=== PATIENT | male | born 1955 | race Caucasian/White ===

== ENCOUNTER → 2017-04-01 | Outpatient (CLI) | payer MEDICARE, MEDICAID ==
[~2017-04-01] MED LIST: /QUET25TA; BACT400T; LACT10SO8; LEVOTHYROXINE; OMEGA ACID ETHYL; PREG50CA; PRIL20CA; SERO200T; TYLE500T53; VICO5TAB; ZOCO10TA
--- NOTE | 2017-04-01 10:55 | REP ---
RENAL ULTRASOUND: HISTORY: Carcinoma. COMPARISON: 02/15/2014. The patient is status post left nephrectomy. The right kidney is increased in echogenicity. The right kidney measures 5.6 cm in transverse x 6.5 cm in AP x 15.3 cm in cephalocaudal dimensions. There is marked cortical thinning. There are multiple angiomyolipomas, the largest measuring 2.5 x 2.6 x 2.4 cm. There is no hydronephrosis. The urinary bladder is markedly distended. Debris is present in the urinary bladder. IMPRESSION: 1. The patient is status post left nephrectomy. 2. Multiple right renal angiolipomas, the largest measuring 2.6 cm in maximum dimension. 3. The bladder is markedly distended and contains debris. Signed by Evaristo Gutierrez MD 04/01/2017 10:56 A
== END ==
LOC: M RAD 09:21
PROVIDERS: ATTEND Internal Medicine
DX: C64.9 Malignant neoplasm of unspecified kidney, except renal pelvis (principal)

== ENCOUNTER → 2017-06-14 | Outpatient (CLI) | payer MEDICARE, MEDICAID | LOC: M WUC 14:15 | DX: J11.1 Influenza due to unidentified influenza virus with other respiratory manifestations (principal) | CPT/HCPCS: 71046 ==

== ENCOUNTER 2017-06-26 06:10 | Inpatient (IN) | payer MEDICARE, MEDICAID ==
[2017-06-26] MEDS: NS 500 ML IV (06:45)
[2017-06-26 07:05] LABS: BASO # 0.1 10^3/uL (0.0-0.2); BASO % 0.3 % (0.0-1.0); HEMATOCRIT 42.9 % (42.0-52.0); HEMOGLOBIN 14.2 g/dl (14.0-18.0); IMMATURE GRANULOCYTE % 0.7 % (0-3.0); LYMPH % 4.3 % (24.0-44.0); MEAN CORPUSCULAR HEMOGLOBIN 30.6 pg (27.0-33.0); MEAN CORPUSCULAR HGB CONC 33.1 g/dl (32.0-36.5); MEAN CORPUSCULAR VOLUME 92.5 fl (80.0-96.0); MONO # 1.1 10^3/uL (0.0-0.8); MONO % 4.7 % (0.0-5.0); PLATELET COUNT, AUTOMATED 372 10^3/uL (150-450); RED BLOOD COUNT 4.64 10^6/uL (4.30-6.10); RED CELL DISTRIBUTION WIDTH 15.2 % (11.5-14.5); WHITE BLOOD COUNT 23.3 10^3/uL (4.0-10.0)
[2017-06-26 07:23] LABS: AMMONIA 25 uMOL/L (<32)
[2017-06-26 07:29] LABS: ALBUMIN 3.1 GM/DL (3.2-5.2); ALBUMIN/GLOBULIN RATIO 0.84 (1.00-1.93); ALKALINE PHOSPHATASE 54 U/L (45-117); ALT/SGPT 58 U/L (12-78); ANION GAP 11 MEQ/L (8-16); AST/SGOT 67 U/L (7-37); BILIRUBIN,DIRECT 0.3 MG/DL (0.0-0.2); BILIRUBIN,TOTAL 0.7 MG/DL (0.2-1.0); BLOOD UREA NITROGEN 38 MG/DL (7-18); CALCIUM LEVEL 10.3 MG/DL (8.5-10.1); CARBON DIOXIDE LEVEL 24 MEQ/L (21-32); CHLORIDE LEVEL 102 MEQ/L (98-107); CPK CREATINE PHOSPHOKINASE 61 U/L (39-308); CREATININE FOR GFR 2.94 MG/DL (0.70-1.30); GLOMERULAR FILTRATION RATE 23.5 (>56); GLUCOSE, FASTING 124 MG/DL (70-100); SODIUM LEVEL 137 MEQ/L (136-145); TOTAL PROTEIN 6.8 GM/DL (6.4-8.2); TROPONIN I 0.03 NG/ML (< 0.10)
[2017-06-26 07:35] LABS: POTASSIUM SERUM 5.4 MEQ/L (3.5-5.1)
[2017-06-26 07:36] LABS: CK-MB VALUE MASS 1.7 NG/ML (0.0-3.6); MB/CK RELATIVE INDEX 2.78 (< OR =4)
[2017-06-26 07:37] LABS: LACTIC ACID SEPSIS PROTOCOL 4.3 MMOL/L (0.4-2.0)
[2017-06-26] MEDS: NS 1,000 ML IV ×4 (08:23→23:27)
[2017-06-26 10:39] LABS: BASO % 0.2 % (0.0-1.0); HEMATOCRIT 39.3 % (42.0-52.0); HEMOGLOBIN 13.3 g/dl (14.0-18.0); IMMATURE GRANULOCYTE % 0.8 % (0-3.0); LYMPH # 1.1 10^3/uL (1.5-4.5); LYMPH % 5.6 % (24.0-44.0); MEAN CORPUSCULAR HEMOGLOBIN 31.3 pg (27.0-33.0); MEAN CORPUSCULAR HGB CONC 33.8 g/dl (32.0-36.5); MEAN CORPUSCULAR VOLUME 92.5 fl (80.0-96.0); MONO # 1.5 10^3/uL (0.0-0.8); MONO % 7.2 % (0.0-5.0); NEUTROPHILS # 17.7 10^3/uL (1.8-7.7); NEUTROPHILS % 86.2 % (36.0-66.0); PLATELET COUNT, AUTOMATED 319 10^3/uL (150-450); RED BLOOD COUNT 4.25 10^6/uL (4.30-6.10); RED CELL DISTRIBUTION WIDTH 15.2 % (11.5-14.5); WHITE BLOOD COUNT 20.5 10^3/uL (4.0-10.0)
[2017-06-26 12:36] LABS: MAGNESIUM LEVEL 4.4 MG/DL (1.8-2.4); PHOSPHORUS LEVEL 7.4 MG/DL (2.5-4.9)
[2017-06-26] MEDS ORDERED: LACTULOSE 20 GM/30 ML SYRUP UD PO (14:00)
[2017-06-26] MEDS: LEVOTHYROXINE 88MCG TABLET (0.088 MG) PO (15:45)
[2017-06-26] MEDS: PREGABALIN 50 MG CAP (LYRICA) PO ×2 (16:11→22:24)
[2017-06-26] MEDS: OMEPRAZOLE 20 MG CAP PO (16:12)
[2017-06-26 18:49] LABS: ANION GAP 8 MEQ/L (8-16); AST/SGOT 37 U/L (7-37); BLOOD UREA NITROGEN 35 MG/DL (7-18); CALCIUM LEVEL 8.7 MG/DL (8.5-10.1); CARBON DIOXIDE LEVEL 22 MEQ/L (21-32); CHLORIDE LEVEL 111 MEQ/L (98-107); CREATININE FOR GFR 2.12 MG/DL (0.70-1.30); GLOMERULAR FILTRATION RATE 34.2 (>56); GLUCOSE, FASTING 116 MG/DL (70-100); POTASSIUM SERUM 4.5 MEQ/L (3.5-5.1); SODIUM LEVEL 141 MEQ/L (136-145)
[2017-06-26 18:50] LABS: ALBUMIN 2.4 GM/DL (3.2-5.2); ALBUMIN/GLOBULIN RATIO 0.73 (1.00-1.93); ALKALINE PHOSPHATASE 52 U/L (45-117); ALT/SGPT 40 U/L (12-78); BILIRUBIN,TOTAL 0.5 MG/DL (0.2-1.0); CK-MB VALUE MASS 1.4 NG/ML (0.0-3.6); CPK CREATINE PHOSPHOKINASE 54 U/L (39-308); MAGNESIUM LEVEL 2.8 MG/DL (1.8-2.4); MB/CK RELATIVE INDEX 2.59 (< OR =4); TOTAL PROTEIN 5.7 GM/DL (6.4-8.2); TROPONIN I < 0.02 NG/ML (< 0.10)
[2017-06-26 19:07] LABS: LACTIC ACID SEPSIS PROTOCOL 2.6 MMOL/L (0.4-2.0)
[2017-06-26] MEDS: NIACIN SR (NIASPAN) 500 MG TAB PO (22:24)
[2017-06-26] MEDS: QUEtiapine FUMARATE 200 MG TAB PO (22:24)
[2017-06-26] MEDS: ASPIRIN 81 MG ENTERIC TAB PO (22:24)
[2017-06-26] MEDS: SIMVASTATIN 10 MG TAB PO (22:24)
[2017-06-26] MEDS: QUEtiapine FUMARATE 50 MG TAB PO (22:24)
[2017-06-27 02:04] LABS: CPK CREATINE PHOSPHOKINASE 44 U/L (39-308); TROPONIN I < 0.02 NG/ML (< 0.10)
[2017-06-27 02:07] LABS: CK-MB VALUE MASS 1.1 NG/ML (0.0-3.6)
[2017-06-27] MEDS: LEVOTHYROXINE 88MCG TABLET (0.088 MG) PO (05:48)
[2017-06-27 06:54] LABS: HEMATOCRIT 33.1 % (42.0-52.0); MEAN CORPUSCULAR HEMOGLOBIN 31.1 pg (27.0-33.0); MEAN CORPUSCULAR HGB CONC 34.1 g/dl (32.0-36.5); MEAN CORPUSCULAR VOLUME 91.2 fl (80.0-96.0); PLATELET COUNT, AUTOMATED 264 10^3/uL (150-450); RED BLOOD COUNT 3.63 10^6/uL (4.30-6.10); RED CELL DISTRIBUTION WIDTH 15.4 % (11.5-14.5); WHITE BLOOD COUNT 9.7 10^3/uL (4.0-10.0)
[2017-06-27 07:09] LABS: POSITIVE MORPH POS FLAG
[2017-06-27 07:10] LABS: ADD MANUAL DIFFER YES; DIFF SLIDE NUMBER 88; HEMOGLOBIN 11.3 g/dl (14.0-18.0)
[2017-06-27 07:28] LABS: ALBUMIN 2.2 GM/DL (3.2-5.2); ALBUMIN/GLOBULIN RATIO 0.79 (1.00-1.93); ALKALINE PHOSPHATASE 42 U/L (45-117); ALT/SGPT 30 U/L (12-78); ANION GAP 7 MEQ/L (8-16); AST/SGOT 23 U/L (7-37); BILIRUBIN,TOTAL 0.5 MG/DL (0.2-1.0); BLOOD UREA NITROGEN 30 MG/DL (7-18); CARBON DIOXIDE LEVEL 21 MEQ/L (21-32); CHLORIDE LEVEL 115 MEQ/L (98-107); CREATININE FOR GFR 1.57 MG/DL (0.70-1.30); FREE THYROXINE INDEX 1.3 % (1.4-3.8); GLOMERULAR FILTRATION RATE 48.4 (>56); GLUCOSE, FASTING 106 MG/DL (70-100); MAGNESIUM LEVEL 2.4 MG/DL (1.8-2.4); POTASSIUM SERUM 4.3 MEQ/L (3.5-5.1); SODIUM LEVEL 143 MEQ/L (136-145); T UPTAKE 36 % (33-40); THYROXINE (T4) 3.6 UG/DL (4.5-12.0)
[2017-06-27 07:29] LABS: BANDS 6 % (< 11); BASOPHILS 1 % (0-4); LYMPHOCYTES 12 % (16-52); MONOCYTES 4 % (0-8); NEUTROPHILS 77 % (35-75)
[2017-06-27 07:30] LABS: PLATELET ESTIMATE NORMAL (NORMAL)
[2017-06-27] MEDS: PREGABALIN 50 MG CAP (LYRICA) PO ×3 (08:26→20:22)
[2017-06-27] MEDS: OMEPRAZOLE 20 MG CAP PO (08:26)
[2017-06-27] MEDS: QUEtiapine FUMARATE 100 MG TAB PO (08:26)
[2017-06-27] MEDS: NS 1,000 ML IV ×2 (09:40→20:22)
[2017-06-27 10:25] LABS: CPK CREATINE PHOSPHOKINASE 31 U/L (39-308); MB/CK RELATIVE INDEX 3.22 (< OR =4); TROPONIN I < 0.02 NG/ML (< 0.10)
[2017-06-27] MEDS: QUEtiapine FUMARATE 200 MG TAB PO (20:22)
[2017-06-27] MEDS: QUEtiapine FUMARATE 50 MG TAB PO (20:22)
[2017-06-27] MEDS: ASPIRIN 81 MG ENTERIC TAB PO (20:22)
[2017-06-27] MEDS: SIMVASTATIN 10 MG TAB PO (20:22)
[2017-06-27] MEDS: NIACIN SR (NIASPAN) 500 MG TAB PO (20:22)
[2017-06-27 21:36] LABS: AMORPHOUS SEDIMENT SMALL (NEGATIVE); APPEARANCE, URINE CLOUDY (CLEAR); BACTERIA, URINE AUTO 2+ (NEGATIVE); BILIRUBIN, URINE AUTO NEGATIVE (NEGATIVE); BLOOD, URINE BLOOD 1+ (NEGATIVE); COLOR, URINE YELLOW (YELLOW); GLUCOSE, URINE (UA) AUTO NEGATIVE (NEGATIVE); KETONE, URINE AUTO NEGATIVE (NEGATIVE); LEUKOCYTE ESTERASE, URINE AUTO 1+ (NEGATIVE); MUCUS, URINE SMALL (NEGATIVE); NITRITE, URINE AUTO NEGATIVE (NEGATIVE); PROTEIN, URINE AUTO NEGATIVE (NEGATIVE); RBC, URINE AUTO 5 /HPF (0-3); SPECIFIC GRAVITY URINE AUTO 1.015 (1.002-1.035); SQUAMOUS EPITHELIAL CELL UR AU 23 /HPF (0-6); WBC, URINE AUTO 28 /HPF (0-3)
[2017-06-28] MEDS: NS 1,000 ML IV (05:27)
[2017-06-28] MEDS: LEVOTHYROXINE 88MCG TABLET (0.088 MG) PO (06:24)
[2017-06-28 07:37] LABS: HEMATOCRIT 27.9 % (42.0-52.0); HEMOGLOBIN 9.5 g/dl (14.0-18.0); MEAN CORPUSCULAR HEMOGLOBIN 30.8 pg (27.0-33.0); MEAN CORPUSCULAR HGB CONC 34.1 g/dl (32.0-36.5); MEAN CORPUSCULAR VOLUME 90.6 fl (80.0-96.0); PLATELET COUNT, AUTOMATED 238 10^3/uL (150-450); RED BLOOD COUNT 3.08 10^6/uL (4.30-6.10); RED CELL DISTRIBUTION WIDTH 15.4 % (11.5-14.5)
[2017-06-28 07:42] LABS: ADD MANUAL DIFFER YES; DIFF SLIDE NUMBER 49; POSITIVE MORPH POS FLAG
[2017-06-28 07:59] LABS: ALBUMIN 1.9 GM/DL (3.2-5.2); ALBUMIN/GLOBULIN RATIO 0.58 (1.00-1.93); ALKALINE PHOSPHATASE 41 U/L (45-117); ALT/SGPT 24 U/L (12-78); ANION GAP 6 MEQ/L (8-16); AST/SGOT 23 U/L (7-37); BILIRUBIN,TOTAL 0.3 MG/DL (0.2-1.0); BLOOD UREA NITROGEN 15 MG/DL (7-18); CALCIUM LEVEL 7.9 MG/DL (8.5-10.1); CARBON DIOXIDE LEVEL 23 MEQ/L (21-32); CHLORIDE LEVEL 114 MEQ/L (98-107); GLOMERULAR FILTRATION RATE > 60.0 (>56); GLUCOSE, FASTING 96 MG/DL (70-100); SODIUM LEVEL 143 MEQ/L (136-145); TOTAL PROTEIN 5.2 GM/DL (6.4-8.2)
[2017-06-28 08:13] LABS: ATYPICAL LYMPH 3 % (0-5); BANDS 4 % (< 11); EOSINOPHILS 3 % (0-5); LYMPHOCYTES 14 % (16-52); METAMYELOCYTES 1 % (0-0); MONOCYTES 7 % (0-8); NEUTROPHILS 68 % (35-75); PLATELET ESTIMATE NORMAL (NORMAL)
[2017-06-28 08:14] LABS: ANISOCYTOSIS 1+; POLYCHROMASIA 1+
[2017-06-28] MEDS: QUEtiapine FUMARATE 100 MG TAB PO (08:34)
[2017-06-28] MEDS: OMEPRAZOLE 20 MG CAP PO (08:35)
[2017-06-28] MEDS: PREGABALIN 50 MG CAP (LYRICA) PO ×3 (08:35→20:45)
[2017-06-28] MEDS: TAMSULOSIN 0.4 MG CAP PO (08:35)
[2017-06-28] MEDS: LACTULOSE 20 GM/30 ML SYRUP UD PO ×3 (09:00→20:47)
[2017-06-28 16:01] LABS: HEMATOCRIT 29.6 % (42.0-52.0)
[2017-06-28] MEDS: NIACIN SR (NIASPAN) 500 MG TAB PO (20:44)
[2017-06-28] MEDS: QUEtiapine FUMARATE 200 MG TAB PO (20:44)
[2017-06-28] MEDS: QUEtiapine FUMARATE 50 MG TAB PO (20:44)
[2017-06-28] MEDS: ASPIRIN 81 MG ENTERIC TAB PO (20:44)
[2017-06-28] MEDS: SIMVASTATIN 10 MG TAB PO (20:44)
[2017-06-29 00:20] LABS: HEMOGLOBIN 9.8 g/dl (14.0-18.0)
[2017-06-29] MEDS: LEVOTHYROXINE 88MCG TABLET (0.088 MG) PO (06:13)
[2017-06-29 07:11] LABS: BASO # 0.1 10^3/uL (0.0-0.2); BASO % 0.7 % (0.0-1.0); EOS # 0.7 10^3/uL (0.0-0.50); EOS % 8.6 % (0.0-3.0); HEMATOCRIT 29.3 % (42.0-52.0); HEMOGLOBIN 9.9 g/dl (14.0-18.0); IMMATURE GRANULOCYTE % 0.8 % (0-3.0); LYMPH # 1.5 10^3/uL (1.5-4.5); LYMPH % 18.2 % (24.0-44.0); MEAN CORPUSCULAR HEMOGLOBIN 30.6 pg (27.0-33.0); MEAN CORPUSCULAR HGB CONC 33.8 g/dl (32.0-36.5); MEAN CORPUSCULAR VOLUME 90.4 fl (80.0-96.0); MONO # 0.5 10^3/uL (0.0-0.8); MONO % 5.7 % (0.0-5.0); NEUTROPHILS # 5.5 10^3/uL (1.8-7.7); PLATELET COUNT, AUTOMATED 265 10^3/uL (150-450); RED BLOOD COUNT 3.24 10^6/uL (4.30-6.10); RED CELL DISTRIBUTION WIDTH 15.3 % (11.5-14.5); WHITE BLOOD COUNT 8.4 10^3/uL (4.0-10.0)
[2017-06-29 07:36] LABS: ALBUMIN 2.1 GM/DL (3.2-5.2); ALBUMIN/GLOBULIN RATIO 0.57 (1.00-1.93); ALKALINE PHOSPHATASE 53 U/L (45-117); ALT/SGPT 38 U/L (12-78); ANION GAP 7 MEQ/L (8-16); AST/SGOT 39 U/L (7-37); BILIRUBIN,TOTAL 0.2 MG/DL (0.2-1.0); BLOOD UREA NITROGEN 12 MG/DL (7-18); CALCIUM LEVEL 8.5 MG/DL (8.5-10.1); CARBON DIOXIDE LEVEL 25 MEQ/L (21-32); CHLORIDE LEVEL 114 MEQ/L (98-107); CREATININE FOR GFR 1.09 MG/DL (0.70-1.30); GLOMERULAR FILTRATION RATE > 60.0 (>56); GLUCOSE, FASTING 101 MG/DL (70-100); MAGNESIUM LEVEL 1.9 MG/DL (1.8-2.4); POTASSIUM SERUM 3.8 MEQ/L (3.5-5.1); SODIUM LEVEL 146 MEQ/L (136-145); TOTAL PROTEIN 5.8 GM/DL (6.4-8.2)
[2017-06-29] MEDS: LACTULOSE 20 GM/30 ML SYRUP UD PO ×3 (09:09→21:21)
[2017-06-29] MEDS: TAMSULOSIN 0.4 MG CAP PO (09:10)
[2017-06-29] MEDS: QUEtiapine FUMARATE 100 MG TAB PO (09:10)
[2017-06-29] MEDS: PREGABALIN 50 MG CAP (LYRICA) PO ×3 (09:10→21:21)
[2017-06-29] MEDS: OMEPRAZOLE 20 MG CAP PO (09:11)
[2017-06-29] MEDS: CEPHALEXIN 500 MG CAP PO ×2 (13:41→21:21)
[2017-06-29] MEDS: FINASTERIDE 5 MG TAB PO (13:41)
[2017-06-29] MEDS: QUEtiapine FUMARATE 200 MG TAB PO (21:21)
[2017-06-29] MEDS: SIMVASTATIN 10 MG TAB PO (21:21)
[2017-06-29] MEDS: QUEtiapine FUMARATE 50 MG TAB PO (21:21)
[2017-06-29] MEDS: ASPIRIN 81 MG ENTERIC TAB PO (21:21)
[2017-06-29] MEDS: NIACIN SR (NIASPAN) 500 MG TAB PO (21:21)
[2017-06-30] MEDS: LEVOTHYROXINE 88MCG TABLET (0.088 MG) PO (06:00)
[2017-06-30 06:59] LABS: HEMATOCRIT 29.6 % (42.0-52.0); MEAN CORPUSCULAR HGB CONC 33.8 g/dl (32.0-36.5); MEAN CORPUSCULAR VOLUME 91.6 fl (80.0-96.0); PLATELET COUNT, AUTOMATED 273 10^3/uL (150-450); RED BLOOD COUNT 3.23 10^6/uL (4.30-6.10); RED CELL DISTRIBUTION WIDTH 14.9 % (11.5-14.5); WHITE BLOOD COUNT 8.8 10^3/uL (4.0-10.0)
[2017-06-30 07:06] LABS: ADD MANUAL DIFFER YES; DIFF SLIDE NUMBER 24; POSITIVE MORPH POS FLAG
[2017-06-30 07:22] LABS: ALBUMIN 2.2 GM/DL (3.2-5.2); ALBUMIN/GLOBULIN RATIO 0.58 (1.00-1.93); ALKALINE PHOSPHATASE 57 U/L (45-117); ALT/SGPT 44 U/L (12-78); ANION GAP 10 MEQ/L (8-16); AST/SGOT 36 U/L (7-37); BILIRUBIN,TOTAL 0.3 MG/DL (0.2-1.0); BLOOD UREA NITROGEN 15 MG/DL (7-18); CALCIUM LEVEL 8.5 MG/DL (8.5-10.1); CARBON DIOXIDE LEVEL 25 MEQ/L (21-32); CHLORIDE LEVEL 117 MEQ/L (98-107); CREATININE FOR GFR 1.17 MG/DL (0.70-1.30); GLOMERULAR FILTRATION RATE > 60.0 (>56); GLUCOSE, FASTING 93 MG/DL (70-100); MAGNESIUM LEVEL 1.8 MG/DL (1.8-2.4); POTASSIUM SERUM 3.9 MEQ/L (3.5-5.1); SODIUM LEVEL 152 MEQ/L (136-145)
[2017-06-30 07:50] LABS: ATYPICAL LYMPH 5 % (0-5); BANDS 1 % (< 11); BASOPHILS 1 % (0-4); EOSINOPHILS 6 % (0-5); LYMPHOCYTES 24 % (16-52); MONOCYTES 9 % (0-8); NEUTROPHILS 54 % (35-75)
[2017-06-30 07:51] LABS: PLATELET ESTIMATE NORMAL (NORMAL)
[2017-06-30] MEDS: LACTULOSE 20 GM/30 ML SYRUP UD PO ×3 (08:41→20:36)
[2017-06-30] MEDS: TAMSULOSIN 0.4 MG CAP PO (08:41)
[2017-06-30] MEDS: CEPHALEXIN 500 MG CAP PO ×2 (08:42→20:36)
[2017-06-30] MEDS: PREGABALIN 50 MG CAP (LYRICA) PO ×3 (08:42→20:36)
[2017-06-30] MEDS: OMEPRAZOLE 20 MG CAP PO (08:42)
[2017-06-30] MEDS: FINASTERIDE 5 MG TAB PO (08:42)
[2017-06-30] MEDS: D5W 1,000 ML IV (08:44)
[2017-06-30 12:42] LABS: ANION GAP 5 MEQ/L (8-16); BLOOD UREA NITROGEN 15 MG/DL (7-18); CALCIUM LEVEL 8.3 MG/DL (8.5-10.1); CARBON DIOXIDE LEVEL 27 MEQ/L (21-32); CHLORIDE LEVEL 113 MEQ/L (98-107); CREATININE FOR GFR 1.21 MG/DL (0.70-1.30); GLOMERULAR FILTRATION RATE > 60.0 (>56); GLUCOSE, FASTING 109 MG/DL (70-100); MAGNESIUM LEVEL 1.9 MG/DL (1.8-2.4); PHOSPHORUS LEVEL 2.1 MG/DL (2.5-4.9); POTASSIUM SERUM 3.5 MEQ/L (3.5-5.1); SODIUM LEVEL 145 MEQ/L (136-145)
[2017-06-30] MEDS: QUEtiapine FUMARATE 100 MG TAB PO (13:07)
[2017-06-30] MEDS: SIMVASTATIN 10 MG TAB PO (20:36)
[2017-06-30] MEDS: ASPIRIN 81 MG ENTERIC TAB PO (20:36)
[2017-06-30] MEDS: QUEtiapine FUMARATE 200 MG TAB PO (20:36)
[2017-06-30] MEDS: QUEtiapine FUMARATE 50 MG TAB PO (20:36)
[2017-06-30] MEDS: NIACIN SR (NIASPAN) 500 MG TAB PO (20:36)
[2017-07-01] MEDS: LEVOTHYROXINE 88MCG TABLET (0.088 MG) PO (05:56)
[2017-07-01 06:57] LABS: HEMATOCRIT 31.8 % (42.0-52.0); HEMOGLOBIN 10.8 g/dl (14.0-18.0); MEAN CORPUSCULAR HEMOGLOBIN 30.9 pg (27.0-33.0); MEAN CORPUSCULAR VOLUME 90.9 fl (80.0-96.0); PLATELET COUNT, AUTOMATED 302 10^3/uL (150-450); RED CELL DISTRIBUTION WIDTH 14.6 % (11.5-14.5); WHITE BLOOD COUNT 7.4 10^3/uL (4.0-10.0)
[2017-07-01 06:58] LABS: POSITIVE MORPH POS FLAG
[2017-07-01 06:59] LABS: ADD MANUAL DIFFER YES; DIFF SLIDE NUMBER 24
[2017-07-01 07:15] LABS: ALBUMIN 2.2 GM/DL (3.2-5.2); ALBUMIN/GLOBULIN RATIO 0.58 (1.00-1.93); ALKALINE PHOSPHATASE 52 U/L (45-117); ALT/SGPT 47 U/L (12-78); ANION GAP 8 MEQ/L (8-16); AST/SGOT 36 U/L (7-37); BILIRUBIN,TOTAL 0.3 MG/DL (0.2-1.0); BLOOD UREA NITROGEN 15 MG/DL (7-18); CALCIUM LEVEL 8.5 MG/DL (8.5-10.1); CARBON DIOXIDE LEVEL 25 MEQ/L (21-32); CHLORIDE LEVEL 109 MEQ/L (98-107); GLOMERULAR FILTRATION RATE > 60.0 (>56); GLUCOSE, FASTING 109 MG/DL (70-100); MAGNESIUM LEVEL 1.8 MG/DL (1.8-2.4); POTASSIUM SERUM 3.9 MEQ/L (3.5-5.1); SODIUM LEVEL 142 MEQ/L (136-145)
[2017-07-01 07:31] LABS: ATYPICAL LYMPH 3 % (0-5); BANDS 2 % (< 11); EOSINOPHILS 11 % (0-5); LYMPHOCYTES 27 % (16-52); MONOCYTES 7 % (0-8); NEUTROPHILS 50 % (35-75)
[2017-07-01 07:32] LABS: PLATELET ESTIMATE NORMAL (NORMAL)
[2017-07-01] MEDS: TAMSULOSIN 0.4 MG CAP PO (08:52)
[2017-07-01] MEDS: LACTULOSE 20 GM/30 ML SYRUP UD PO (08:52)
[2017-07-01] MEDS: PREGABALIN 50 MG CAP (LYRICA) PO (08:53)
[2017-07-01] MEDS: OMEPRAZOLE 20 MG CAP PO (08:53)
[2017-07-01] MEDS: FINASTERIDE 5 MG TAB PO (08:53)
[2017-07-01] MEDS: CEPHALEXIN 500 MG CAP PO (08:53)
[2017-07-01] MEDS: QUEtiapine FUMARATE 100 MG TAB PO (08:53)
== END 2017-07-01 14:20 | disposition home or self-care (01) | DRG 690 ==
LOC: M MS4PR 06-27 17:15 → M ED 06:10 → M ED INP 13:20
DX: N39.0 Urinary tract infection, site not specified (principal); F72 Severe intellectual disabilities; N17.9 Acute kidney failure, unspecified; Q85.1 Tuberous sclerosis; E87.2 Acidosis; G40.909 Epilepsy, unspecified, not intractable, without status epilepticus; E78.5 Hyperlipidemia, unspecified; K21.9 Gastro-esophageal reflux disease without esophagitis; E03.9 Hypothyroidism, unspecified; N18.3 Chronic kidney disease, stage 3 (moderate); K59.00 Constipation, unspecified; D64.9 Anemia, unspecified; R33.9 Retention of urine, unspecified; A08.4 Viral intestinal infection, unspecified; E83.41 Hypermagnesemia; E87.5 Hyperkalemia; Z79.82 Long term (current) use of aspirin; Z88.5 Allergy status to narcotic agent; Z88.6 Allergy status to analgesic agent; Z88.8 Allergy status to other drugs, medicaments and biological substances; Z88.1 Allergy status to other antibiotic agents; Z85.528 Personal history of other malignant neoplasm of kidney; Z90.5 Acquired absence of kidney

== ENCOUNTER → 2017-07-19 | Outpatient (REF) | payer MEDICARE, MEDICAID ==
[2017-07-19 20:06] LABS: APPEARANCE, URINE CLOUDY (CLEAR); BACTERIA, URINE AUTO 3+ (NEGATIVE); BILIRUBIN, URINE AUTO NEGATIVE (NEGATIVE); BLOOD, URINE BLOOD 3+ (NEGATIVE); COLOR, URINE YELLOW (YELLOW); GLUCOSE, URINE (UA) AUTO NEGATIVE (NEGATIVE); KETONE, URINE AUTO NEGATIVE (NEGATIVE); LEUKOCYTE ESTERASE, URINE AUTO 3+ (NEGATIVE); MUCUS, URINE MODERATE (NEGATIVE); NITRITE, URINE AUTO NEGATIVE (NEGATIVE); PROTEIN, URINE AUTO 1+ mg/dL (NEGATIVE); RBC, URINE AUTO 45 /HPF (0-3); SPECIFIC GRAVITY URINE AUTO 1.011 (1.002-1.035); SQUAMOUS EPITHELIAL CELL UR AU 4 /HPF (0-6); WBC, URINE AUTO TNTC /HPF (0-3)
[2017-07-19 20:29] LABS: INFLUENZA A AMPLIFICATION NEGATIVE (NEGATIVE); INFLUENZA B AMPLIFICATION NEGATIVE (NEGATIVE)
== END ==
LOC: M LAB REF 18:52
DX: J11.1 Influenza due to unidentified influenza virus with other respiratory manifestations (principal); N39.0 Urinary tract infection, site not specified
CPT/HCPCS: 81001

== ENCOUNTER 2017-08-14 20:23 | Emergency (ER) | payer MEDICARE, MEDICAID ==
[2017-08-14 22:37] LABS: KETONE, URINE AUTO RFX NEGATIVE (NEGATIVE); RBC, URINE AUTO RFX 6 /HPF (0-3); SPECIFIC GRAVITY UR AUTO RFX 1.004 (1.002-1.035); SQUAM EPITHELIAL CELL UR AURFX 1 /HPF (0-6); TRANSITIONAL EPITHELIAL AU RFX <1 /HPF
[2017-08-14 22:38] LABS: LEUKOCYTE ESTERASE UR AUTO RFX 3+ (NEGATIVE); NITRITE, URINE AUTO RFX POSITIVE (NEGATIVE); WBC, URINE AUTO RFX 112 /HPF (0-3)
[2017-08-14] MEDS: NITROFURANTOIN (MACROBID) 100 MG CAP PO ×4 (23:10)
== END 2017-08-14 23:24 | disposition home or self-care (01) ==
LOC: M ED 20:23
DX: N39.0 Urinary tract infection, site not specified (principal); R33.9 Retention of urine, unspecified; F72 Severe intellectual disabilities; R56.9 Unspecified convulsions; E03.9 Hypothyroidism, unspecified; N40.1 Benign prostatic hyperplasia with lower urinary tract symptoms; F41.9 Anxiety disorder, unspecified; Z90.5 Acquired absence of kidney; Z88.6 Allergy status to analgesic agent; Z88.5 Allergy status to narcotic agent; Z88.1 Allergy status to other antibiotic agents; Z79.899 Other long term (current) drug therapy; Z79.82 Long term (current) use of aspirin
CPT/HCPCS: 81001

== ENCOUNTER 2017-10-15 08:01 | Inpatient (IN) | payer MEDICARE, MEDICAID ==
[2017-10-15] MEDS: NS 1,000 ML IV ×5 (09:26→21:56)
[2017-10-15 09:41] LABS: HEMATOCRIT 42.6 % (42.0-52.0); HEMOGLOBIN 13.9 g/dl (13.5-17.5); MEAN CORPUSCULAR HEMOGLOBIN 29.1 pg (27.0-33.0); MEAN CORPUSCULAR HGB CONC 32.6 g/dl (32.0-36.5); MEAN CORPUSCULAR VOLUME 89.3 fl (80.0-96.0); PLATELET COUNT, AUTOMATED 289 10^3/uL (150-450); RED BLOOD COUNT 4.77 10^6/uL (4.30-6.10); RED CELL DISTRIBUTION WIDTH 16.2 % (11.5-14.5); WHITE BLOOD COUNT 15.5 10^3/uL (4.0-10.0)
[2017-10-15 09:45] LABS: ADD MANUAL DIFFER YES; DIFF SLIDE NUMBER 183; POSITIVE MORPH POS FLAG
[2017-10-15 10:10] LABS: BANDS 17 % (< 11); LYMPHOCYTES 10 % (16-52); MONOCYTES 2 % (0-8); NEUTROPHILS 71 % (35-75)
[2017-10-15 10:11] LABS: ALKALINE PHOSPHATASE 49 U/L (45-117); ANION GAP 14 MEQ/L (8-16); ANISOCYTOSIS 1+; AST/SGOT 36 U/L (7-37); BILIRUBIN,DIRECT 0.2 MG/DL (0.0-0.2); BILIRUBIN,TOTAL 0.6 MG/DL (0.2-1.0); BLOOD UREA NITROGEN 46 MG/DL (7-18); CALCIUM LEVEL 9.6 MG/DL (8.5-10.1); CARBON DIOXIDE LEVEL 23 MEQ/L (21-32); CHLORIDE LEVEL 104 MEQ/L (98-107); CPK CREATINE PHOSPHOKINASE 51 U/L (39-308); CREATININE FOR GFR 2.99 MG/DL (0.70-1.30); GLUCOSE, FASTING 130 MG/DL (70-100); PLATELET ESTIMATE NORMAL (NORMAL); POTASSIUM SERUM 4.4 MEQ/L (3.5-5.1); SODIUM LEVEL 141 MEQ/L (136-145); TOTAL PROTEIN 7.8 GM/DL (6.4-8.2); TROPONIN I < 0.02 NG/ML (< 0.10)
[2017-10-15 10:18] LABS: LACTIC ACID SEPSIS PROTOCOL 4.5 MMOL/L (0.4-2.0)
[2017-10-15 10:23] LABS: ALBUMIN 3.4 GM/DL (3.2-5.2); ALBUMIN/GLOBULIN RATIO 0.77 (1.00-1.93); ALT/SGPT 37 U/L (12-78); CK-MB VALUE MASS < 1.0 NG/ML (<3.6); MB/CK RELATIVE INDEX 1.96 (< OR =4)
[2017-10-15] MEDS: cefTRIAXone SOD 1 GM in D5W MINI-BAG PLUS 50 ML IV (10:55)
[2017-10-15 11:12] LABS: CALCIUM OXALATE CRYSTALS RFX SMALL; KETONE, URINE AUTO RFX TRACE mg/dL (NEGATIVE); MUCUS, URINE RFX SMALL (NEGATIVE); NITRITE, URINE AUTO RFX NEGATIVE (NEGATIVE); RBC, URINE AUTO RFX 60 /HPF (0-3); SPECIFIC GRAVITY UR AUTO RFX 1.023 (1.002-1.035); SQUAM EPITHELIAL CELL UR AURFX 31 /HPF (0-6)
[2017-10-15 11:13] LABS: LEUKOCYTE ESTERASE UR AUTO RFX 2+ (NEGATIVE); WBC, URINE AUTO RFX 128 /HPF (0-3)
[2017-10-15] MEDS ORDERED: PILL CRUSHER/CUTTER 1 EACH XX (13:15)
[2017-10-15] MEDS ORDERED: metroNIDAZOLE 500 MG in APPROPRIATE DILUENT 1 EA IV (15:00)
[2017-10-15] MEDS: OMEPRAZOLE 20 MG CAP PO (15:00)
[2017-10-15] MEDS: PREGABALIN 50 MG CAP (LYRICA) PO ×2 (15:00→21:56)
[2017-10-15] MEDS: QUEtiapine FUMARATE 100 MG TAB PO ×2 (15:00→21:56)
[2017-10-15] MEDS: LEVOTHYROXINE 88MCG TABLET (0.088 MG) PO (15:01)
[2017-10-15] MEDS: ACETAMINOPHEN 500 MG TAB PO (15:13)
[2017-10-15 15:27] LABS: LACTIC ACID SEPSIS PROTOCOL 2.6 MMOL/L (0.4-2.0)
[2017-10-15] MEDS ORDERED: QUEtiapine FUMARATE 50 MG TAB PO (21:00)
[2017-10-15] MEDS: SIMVASTATIN 10 MG TAB PO (21:56)
[2017-10-15] MEDS: HEPARIN SOD (PORCINE) 5000 UNITS/ML VIAL SC (22:06)
[2017-10-15] MEDS: metroNIDAZOLE 500 MG in APPROPRIATE DILUENT 1 EA IV (23:06)
[2017-10-16] MEDS: LEVOTHYROXINE 88MCG TABLET (0.088 MG) PO (06:17)
[2017-10-16] MEDS: metroNIDAZOLE 500 MG in APPROPRIATE DILUENT 1 EA IV (06:17)
[2017-10-16 07:00] LABS: HEMATOCRIT 30.5 % (42.0-52.0); MEAN CORPUSCULAR HEMOGLOBIN 29.6 pg (27.0-33.0); MEAN CORPUSCULAR HGB CONC 34.1 g/dl (32.0-36.5); MEAN CORPUSCULAR VOLUME 86.9 fl (80.0-96.0); PLATELET COUNT, AUTOMATED 198 10^3/uL (150-450); RED BLOOD COUNT 3.51 10^6/uL (4.30-6.10); RED CELL DISTRIBUTION WIDTH 16.8 % (11.5-14.5); WHITE BLOOD COUNT 7.8 10^3/uL (4.0-10.0)
[2017-10-16 07:16] LABS: ANION GAP 8 MEQ/L (8-16); BLOOD UREA NITROGEN 29 MG/DL (7-18); CARBON DIOXIDE LEVEL 20 MEQ/L (21-32); CHLORIDE LEVEL 119 MEQ/L (98-107); GLOMERULAR FILTRATION RATE 55.2 (>56); GLUCOSE, FASTING 117 MG/DL (70-100); POTASSIUM SERUM 3.7 MEQ/L (3.5-5.1); SODIUM LEVEL 147 MEQ/L (136-145)
[2017-10-16 07:20] LABS: LACTIC ACID SEPSIS PROTOCOL 1.2 MMOL/L (0.4-2.0)
[2017-10-16 07:29] LABS: ADD MANUAL DIFFER YES; DIFF SLIDE NUMBER 66; HEMOGLOBIN 10.4 g/dl (13.5-17.5); POSITIVE MORPH POS FLAG
[2017-10-16 08:08] LABS: BANDS 14 % (< 11); EOSINOPHILS 7 % (0-5); LYMPHOCYTES 23 % (16-52); MONOCYTES 6 % (0-8); NEUTROPHILS 50 % (35-75)
[2017-10-16 08:09] LABS: ANISOCYTOSIS 1+; OVALOCYTES 1+; PLATELET ESTIMATE NORMAL (NORMAL)
[2017-10-16] MEDS: PREGABALIN 50 MG CAP (LYRICA) PO ×3 (10:27→21:56)
[2017-10-16] MEDS: OMEPRAZOLE 20 MG CAP PO (10:27)
[2017-10-16] MEDS: HEPARIN SOD (PORCINE) 5000 UNITS/ML VIAL SC ×2 (10:27→21:57)
[2017-10-16] MEDS: cefTRIAXone SOD 1 GM in D5W MINI-BAG PLUS 50 ML IV (10:27)
[2017-10-16] MEDS: QUEtiapine FUMARATE 100 MG TAB PO ×2 (10:28→21:56)
[2017-10-16] MEDS: NS 1,000 ML IV ×3 (10:28→22:24)
[2017-10-16] MEDS ORDERED: cefTRIAXone SOD 1 GM in D5W MINI-BAG PLUS 50 ML IV (11:00)
[2017-10-16] MEDS: VANCOMYCIN ORAL SOL 250MG/5ML ORAL SYRINGE PO ×3 (14:04→23:38)
[2017-10-16] MEDS: SIMVASTATIN 10 MG TAB PO (21:56)
[2017-10-17] MEDS: LEVOTHYROXINE 88MCG TABLET (0.088 MG) PO (05:45)
[2017-10-17] MEDS: VANCOMYCIN ORAL SOL 250MG/5ML ORAL SYRINGE PO ×4 (05:45→23:39)
[2017-10-17 06:40] LABS: HEMATOCRIT 29.4 % (42.0-52.0); HEMOGLOBIN 9.9 g/dl (13.5-17.5); MEAN CORPUSCULAR HEMOGLOBIN 29.8 pg (27.0-33.0); MEAN CORPUSCULAR HGB CONC 33.7 g/dl (32.0-36.5); MEAN CORPUSCULAR VOLUME 88.6 fl (80.0-96.0); PLATELET COUNT, AUTOMATED 198 10^3/uL (150-450); RED BLOOD COUNT 3.32 10^6/uL (4.30-6.10); RED CELL DISTRIBUTION WIDTH 16.7 % (11.5-14.5); WHITE BLOOD COUNT 8.6 10^3/uL (4.0-10.0)
[2017-10-17 06:54] LABS: POSITIVE MORPH POS FLAG
[2017-10-17 06:55] LABS: ADD MANUAL DIFFER YES; DIFF SLIDE NUMBER 53
[2017-10-17 07:01] LABS: ANION GAP 6 MEQ/L (8-16); BLOOD UREA NITROGEN 16 MG/DL (7-18); CALCIUM LEVEL 8.2 MG/DL (8.5-10.1); CARBON DIOXIDE LEVEL 24 MEQ/L (21-32); CHLORIDE LEVEL 119 MEQ/L (98-107); CREATININE FOR GFR 1.24 MG/DL (0.70-1.30); GLOMERULAR FILTRATION RATE > 60.0 (>56); GLUCOSE, FASTING 89 MG/DL (70-100); POTASSIUM SERUM 3.8 MEQ/L (3.5-5.1); SODIUM LEVEL 149 MEQ/L (136-145)
[2017-10-17 07:18] LABS: BANDS 8 % (< 11); EOSINOPHILS 12 % (0-5); LYMPHOCYTES 24 % (16-52); MONOCYTES 3 % (0-8); NEUTROPHILS 53 % (35-75); PLATELET ESTIMATE NORMAL (NORMAL)
[2017-10-17] MEDS: QUEtiapine FUMARATE 100 MG TAB PO ×2 (08:42→20:40)
[2017-10-17] MEDS: OMEPRAZOLE 20 MG CAP PO (08:42)
[2017-10-17] MEDS: PREGABALIN 50 MG CAP (LYRICA) PO ×3 (08:42→20:40)
[2017-10-17] MEDS: HEPARIN SOD (PORCINE) 5000 UNITS/ML VIAL SC ×2 (08:43→20:40)
[2017-10-17] MEDS: cefTRIAXone SOD 1 GM in D5W MINI-BAG PLUS 50 ML IV (10:25)
[2017-10-17] MEDS: D5W/0.45% SODIUM CHLORIDE 1,000 ML IV ×2 (11:31→23:39)
[2017-10-17] MEDS: SIMVASTATIN 10 MG TAB PO (20:40)
[2017-10-18] MEDS: LEVOTHYROXINE 88MCG TABLET (0.088 MG) PO (05:55)
[2017-10-18] MEDS: VANCOMYCIN ORAL SOL 250MG/5ML ORAL SYRINGE PO ×3 (05:55→16:56)
[2017-10-18 06:16] LABS: BASO # 0.1 10^3/uL (0.0-0.2); BASO % 0.7 % (0.0-1.0); HEMATOCRIT 30.9 % (42.0-52.0); HEMOGLOBIN 10.5 g/dl (13.5-17.5); IMMATURE GRANULOCYTE % 1.2 % (0-3.0); LYMPH # 2.3 10^3/uL (1.5-4.5); LYMPH % 30.3 % (24.0-44.0); MEAN CORPUSCULAR HEMOGLOBIN 29.3 pg (27.0-33.0); MEAN CORPUSCULAR VOLUME 86.3 fl (80.0-96.0); MONO # 0.5 10^3/uL (0.0-0.8); MONO % 6.8 % (0.0-5.0); NEUTROPHILS # 3.6 10^3/uL (1.8-7.7); PLATELET COUNT, AUTOMATED 234 10^3/uL (150-450); RED BLOOD COUNT 3.58 10^6/uL (4.30-6.10); RED CELL DISTRIBUTION WIDTH 16.3 % (11.5-14.5); WHITE BLOOD COUNT 7.5 10^3/uL (4.0-10.0)
[2017-10-18 06:30] LABS: ANION GAP 6 MEQ/L (8-16); BLOOD UREA NITROGEN 13 MG/DL (7-18); CALCIUM LEVEL 8.5 MG/DL (8.5-10.1); CARBON DIOXIDE LEVEL 26 MEQ/L (21-32); CHLORIDE LEVEL 114 MEQ/L (98-107); CREATININE FOR GFR 0.99 MG/DL (0.70-1.30); GLOMERULAR FILTRATION RATE > 60.0 (>56); GLUCOSE, FASTING 92 MG/DL (70-100); POTASSIUM SERUM 3.6 MEQ/L (3.5-5.1); SODIUM LEVEL 146 MEQ/L (136-145)
[2017-10-18] MEDS: OMEPRAZOLE 20 MG CAP PO (09:38)
[2017-10-18] MEDS: cefTRIAXone SOD 1 GM in D5W MINI-BAG PLUS 50 ML IV (09:38)
[2017-10-18] MEDS: HEPARIN SOD (PORCINE) 5000 UNITS/ML VIAL SC ×2 (09:38→19:59)
[2017-10-18] MEDS: PREGABALIN 50 MG CAP (LYRICA) PO ×3 (09:38→19:59)
[2017-10-18] MEDS: QUEtiapine FUMARATE 100 MG TAB PO ×2 (09:38→19:59)
[2017-10-18] MEDS: D5W/0.45% SODIUM CHLORIDE 1,000 ML IV (12:01)
[2017-10-18] MEDS: SIMVASTATIN 10 MG TAB PO (19:59)
[2017-10-19] MEDS: VANCOMYCIN ORAL SOL 250MG/5ML ORAL SYRINGE PO ×4 (00:19→18:06)
[2017-10-19] MEDS: D5W/0.45% SODIUM CHLORIDE 1,000 ML IV ×2 (00:19→14:11)
[2017-10-19] MEDS: LEVOTHYROXINE 88MCG TABLET (0.088 MG) PO (05:38)
[2017-10-19 06:29] LABS: HEMATOCRIT 31.2 % (42.0-52.0); HEMOGLOBIN 10.6 g/dl (13.5-17.5); MEAN CORPUSCULAR HEMOGLOBIN 29.4 pg (27.0-33.0); MEAN CORPUSCULAR VOLUME 86.4 fl (80.0-96.0); PLATELET COUNT, AUTOMATED 249 10^3/uL (150-450); RED BLOOD COUNT 3.61 10^6/uL (4.30-6.10); RED CELL DISTRIBUTION WIDTH 15.9 % (11.5-14.5)
[2017-10-19 06:42] LABS: ANION GAP 8 MEQ/L (8-16); BLOOD UREA NITROGEN 12 MG/DL (7-18); CALCIUM LEVEL 8.4 MG/DL (8.5-10.1); CARBON DIOXIDE LEVEL 26 MEQ/L (21-32); CHLORIDE LEVEL 111 MEQ/L (98-107); CREATININE FOR GFR 1.02 MG/DL (0.70-1.30); GLOMERULAR FILTRATION RATE > 60.0 (>56); GLUCOSE, FASTING 102 MG/DL (70-100); POTASSIUM SERUM 3.5 MEQ/L (3.5-5.1); SODIUM LEVEL 145 MEQ/L (136-145)
[2017-10-19 07:04] LABS: ADD MANUAL DIFFER YES; DIFF SLIDE NUMBER 19; POS COUNT POS FLAG; POSITIVE MORPH POS FLAG
[2017-10-19 07:22] LABS: ANISOCYTOSIS 1+; BASOPHILS 2 % (0-4); EOSINOPHILS 14 % (0-5); LYMPHOCYTES 34 % (16-52); METAMYELOCYTES 2 % (0-0); MONOCYTES 7 % (0-8); MYELOCYTES 3 % (0-0); NEUTROPHILS 38 % (35-75); PLATELET ESTIMATE NORMAL (NORMAL)
[2017-10-19] MEDS: PREGABALIN 50 MG CAP (LYRICA) PO ×3 (09:59→21:04)
[2017-10-19] MEDS: OMEPRAZOLE 20 MG CAP PO (09:59)
[2017-10-19] MEDS: CEFEPIME HCL 1 GM in D5W MINI-BAG PLUS 50 ML IV ×2 (09:59→20:14)
[2017-10-19] MEDS: QUEtiapine FUMARATE 100 MG TAB PO ×2 (09:59→20:15)
[2017-10-19] MEDS: HEPARIN SOD (PORCINE) 5000 UNITS/ML VIAL SC ×2 (09:59→20:17)
[2017-10-19] MEDS: SIMVASTATIN 10 MG TAB PO (21:04)
[2017-10-20] MEDS: VANCOMYCIN ORAL SOL 250MG/5ML ORAL SYRINGE PO ×4 (00:21→18:28)
[2017-10-20] MEDS: D5W/0.45% SODIUM CHLORIDE 1,000 ML IV (00:21)
[2017-10-20 06:03] LABS: HEMATOCRIT 30.9 % (42.0-52.0); HEMOGLOBIN 10.6 g/dl (13.5-17.5); MEAN CORPUSCULAR HEMOGLOBIN 29.6 pg (27.0-33.0); MEAN CORPUSCULAR HGB CONC 34.3 g/dl (32.0-36.5); MEAN CORPUSCULAR VOLUME 86.3 fl (80.0-96.0); PLATELET COUNT, AUTOMATED 256 10^3/uL (150-450); RED BLOOD COUNT 3.58 10^6/uL (4.30-6.10); RED CELL DISTRIBUTION WIDTH 16.1 % (11.5-14.5); WHITE BLOOD COUNT 9.4 10^3/uL (4.0-10.0)
[2017-10-20] MEDS: LEVOTHYROXINE 88MCG TABLET (0.088 MG) PO (06:09)
[2017-10-20 06:11] LABS: POS COUNT POS FLAG; POSITIVE MORPH POS FLAG
[2017-10-20 06:12] LABS: ADD MANUAL DIFFER YES; DIFF SLIDE NUMBER 12
[2017-10-20 06:16] LABS: ANION GAP 8 MEQ/L (8-16); BLOOD UREA NITROGEN 13 MG/DL (7-18); CALCIUM LEVEL 8.6 MG/DL (8.5-10.1); CARBON DIOXIDE LEVEL 26 MEQ/L (21-32); CHLORIDE LEVEL 111 MEQ/L (98-107); CREATININE FOR GFR 1.01 MG/DL (0.70-1.30); GLOMERULAR FILTRATION RATE > 60.0 (>56); GLUCOSE, FASTING 99 MG/DL (70-100); POTASSIUM SERUM 3.5 MEQ/L (3.5-5.1); SODIUM LEVEL 145 MEQ/L (136-145)
[2017-10-20 06:40] LABS: ANISOCYTOSIS 1+; ATYPICAL LYMPH 3 % (0-5); BASOPHILS 1 % (0-4); EOSINOPHILS 11 % (0-5); LYMPHOCYTES 37 % (16-52); METAMYELOCYTES 4 % (0-0); MONOCYTES 7 % (0-8); MYELOCYTES 2 % (0-0); NEUTROPHILS 35 % (35-75); PLATELET ESTIMATE NORMAL (NORMAL)
[2017-10-20] MEDS: CEFEPIME HCL 1 GM in D5W MINI-BAG PLUS 50 ML IV ×2 (09:16→20:19)
[2017-10-20] MEDS: OMEPRAZOLE 20 MG CAP PO (09:16)
[2017-10-20] MEDS: PREGABALIN 50 MG CAP (LYRICA) PO ×3 (09:16→20:20)
[2017-10-20] MEDS: HEPARIN SOD (PORCINE) 5000 UNITS/ML VIAL SC ×2 (09:17→20:19)
[2017-10-20] MEDS: QUEtiapine FUMARATE 100 MG TAB PO ×2 (09:17→20:19)
[2017-10-20] MEDS: SIMVASTATIN 10 MG TAB PO (20:19)
[2017-10-21] MEDS: VANCOMYCIN ORAL SOL 250MG/5ML ORAL SYRINGE PO ×2 (00:26→06:25)
[2017-10-21] MEDS: LEVOTHYROXINE 88MCG TABLET (0.088 MG) PO (06:25)
[2017-10-21 06:35] LABS: HEMATOCRIT 32.3 % (42.0-52.0); HEMOGLOBIN 10.8 g/dl (13.5-17.5); MEAN CORPUSCULAR HEMOGLOBIN 29.1 pg (27.0-33.0); MEAN CORPUSCULAR HGB CONC 33.4 g/dl (32.0-36.5); MEAN CORPUSCULAR VOLUME 87.1 fl (80.0-96.0); PLATELET COUNT, AUTOMATED 272 10^3/uL (150-450); RED BLOOD COUNT 3.71 10^6/uL (4.30-6.10); RED CELL DISTRIBUTION WIDTH 16.5 % (11.5-14.5); WHITE BLOOD COUNT 8.6 10^3/uL (4.0-10.0)
[2017-10-21 06:39] LABS: ANION GAP 8 MEQ/L (8-16); BLOOD UREA NITROGEN 14 MG/DL (7-18); CALCIUM LEVEL 8.5 MG/DL (8.5-10.1); CARBON DIOXIDE LEVEL 26 MEQ/L (21-32); CHLORIDE LEVEL 109 MEQ/L (98-107); CREATININE FOR GFR 1.08 MG/DL (0.70-1.30); GLOMERULAR FILTRATION RATE > 60.0 (>56); GLUCOSE, FASTING 97 MG/DL (70-100); POTASSIUM SERUM 3.8 MEQ/L (3.5-5.1); SODIUM LEVEL 143 MEQ/L (136-145)
[2017-10-21 06:43] LABS: ADD MANUAL DIFFER YES; DIFF SLIDE NUMBER 12; POS COUNT POS FLAG; POSITIVE MORPH POS FLAG
[2017-10-21 07:31] LABS: BANDS 4 % (< 11); BASOPHILS 1 % (0-4); EOSINOPHILS 13 % (0-5); LYMPHOCYTES 36 % (16-52); METAMYELOCYTES 5 % (0-0); MONOCYTES 7 % (0-8); MYELOCYTES 2 % (0-0); NEUTROPHILS 32 % (35-75); OVALOCYTES 1+
[2017-10-21 07:32] LABS: PLATELET ESTIMATE NORMAL (NORMAL)
[2017-10-21] MEDS: HEPARIN SOD (PORCINE) 5000 UNITS/ML VIAL SC (09:00)
[2017-10-21] MEDS: CEFEPIME HCL 1 GM in D5W MINI-BAG PLUS 50 ML IV (10:54)
[2017-10-21] MEDS: OMEPRAZOLE 20 MG CAP PO (10:54)
[2017-10-21] MEDS: PREGABALIN 50 MG CAP (LYRICA) PO (10:55)
[2017-10-21] MEDS: QUEtiapine FUMARATE 100 MG TAB PO (10:55)
== END 2017-10-21 11:00 | disposition home or self-care (01) | DRG 698 ==
LOC: M ED 08:01 → M ED INP 12:48 → M MSPAV 16:18
DX: T83.511A Infection and inflammatory reaction due to indwelling urethral catheter, initial encounter (principal); A41.9 Sepsis, unspecified organism; F73 Profound intellectual disabilities; A04.72 Enterocolitis due to Clostridium difficile, not specified as recurrent; N17.9 Acute kidney failure, unspecified; E87.2 Acidosis; E87.0 Hyperosmolality and hypernatremia; Q85.1 Tuberous sclerosis; N39.0 Urinary tract infection, site not specified; B96.5 Pseudomonas (aeruginosa) (mallei) (pseudomallei) as the cause of diseases classified elsewhere; G40.909 Epilepsy, unspecified, not intractable, without status epilepticus; E78.5 Hyperlipidemia, unspecified; M48.02 Spinal stenosis, cervical region; R33.9 Retention of urine, unspecified; N31.9 Neuromuscular dysfunction of bladder, unspecified; D17.71 Benign lipomatous neoplasm of kidney; K21.9 Gastro-esophageal reflux disease without esophagitis; E03.9 Hypothyroidism, unspecified; N18.3 Chronic kidney disease, stage 3 (moderate); K59.09 Other constipation; N40.1 Benign prostatic hyperplasia with lower urinary tract symptoms; Z85.528 Personal history of other malignant neoplasm of kidney; Z90.5 Acquired absence of kidney; Z96.0 Presence of urogenital implants; Z88.6 Allergy status to analgesic agent; Z88.5 Allergy status to narcotic agent; Z88.1 Allergy status to other antibiotic agents; Z88.8 Allergy status to other drugs, medicaments and biological substances; Z79.82 Long term (current) use of aspirin; Z79.899 Other long term (current) drug therapy; Y82.9 Unspecified medical devices associated with adverse incidents

== ENCOUNTER 2017-10-30 06:16 | Emergency (ER) | payer MEDICARE, MEDICAID ==
[2017-10-30 08:16] LABS: AMORPHOUS SEDIMENT SMALL (NEGATIVE); APPEARANCE, URINE CLEAR (CLEAR); BACTERIA, URINE AUTO NEGATIVE (NEGATIVE); BILIRUBIN, URINE AUTO NEGATIVE (NEGATIVE); BLOOD, URINE BLOOD NEGATIVE (NEGATIVE); COLOR, URINE STRAW (YELLOW); GLUCOSE, URINE (UA) AUTO NEGATIVE (NEGATIVE); KETONE, URINE AUTO NEGATIVE (NEGATIVE); LEUKOCYTE ESTERASE, URINE AUTO NEGATIVE (NEGATIVE); NITRITE, URINE AUTO NEGATIVE (NEGATIVE); PROTEIN, URINE AUTO NEGATIVE (NEGATIVE); RBC, URINE AUTO 2 /HPF (0-3); SPECIFIC GRAVITY URINE AUTO 1.006 (1.002-1.035); SQUAMOUS EPITHELIAL CELL UR AU 0 /HPF (0-6); UROBILINOGEN, URINE AUTO 0.2 mg/dL (0.0-2.0); WBC, URINE AUTO 1 /HPF (0-3)
== END 2017-10-30 08:22 | disposition home or self-care (01) ==
LOC: M ED 06:16
DX: R33.0 Drug induced retention of urine (principal); T83.028A Displacement of other urinary catheter, initial encounter; E78.70 Disorder of bile acid and cholesterol metabolism, unspecified; K21.9 Gastro-esophageal reflux disease without esophagitis; E07.9 Disorder of thyroid, unspecified; F78 Other intellectual disabilities
CPT/HCPCS: 81001

== ENCOUNTER → 2017-12-12 | Outpatient (REF) | payer MEDICARE, MEDICAID ==
[2017-12-12 14:53] LABS: APPEARANCE, URINE CLOUDY (CLEAR); BACTERIA, URINE AUTO 3+ (NEGATIVE); BILIRUBIN, URINE AUTO NEGATIVE (NEGATIVE); BLOOD, URINE BLOOD NEGATIVE (NEGATIVE); COLOR, URINE YELLOW (YELLOW); GLUCOSE, URINE (UA) AUTO NEGATIVE (NEGATIVE); KETONE, URINE AUTO NEGATIVE (NEGATIVE); LEUKOCYTE ESTERASE, URINE AUTO 3+ (NEGATIVE); MUCUS, URINE SMALL (NEGATIVE); NITRITE, URINE AUTO NEGATIVE (NEGATIVE); PROTEIN, URINE AUTO NEGATIVE (NEGATIVE); RBC, URINE AUTO 7 /HPF (0-3); SQUAMOUS EPITHELIAL CELL UR AU 3 /HPF (0-6); UROBILINOGEN, URINE AUTO 0.2 mg/dL (0.0-2.0); WBC, URINE AUTO TNTC /HPF (0-3)
== END ==
LOC: M SMT 11:52
DX: R82.90 Unspecified abnormal findings in urine (principal)
CPT/HCPCS: 81001

== ENCOUNTER → 2018-03-24 | Outpatient (CLI) | payer MEDICARE, MEDICAID ==
[2018-03-24 07:19] LABS: BASO # 0.1 10^3/uL (0.0-0.2); BASO % 1.3 % (0.0-1.0); EOS # 0.7 10^3/uL (0.0-0.50); HEMOGLOBIN 11.9 g/dl (13.5-17.5); IMMATURE GRANULOCYTE % 0.4 % (0-3.0); LYMPH # 1.9 10^3/uL (1.5-4.5); LYMPH % 34.7 % (24.0-44.0); MEAN CORPUSCULAR HEMOGLOBIN 31.1 pg (27.0-33.0); MEAN CORPUSCULAR HGB CONC 33.1 g/dl (32.0-36.5); MONO # 0.7 10^3/uL (0.0-0.8); MONO % 11.8 % (0.0-5.0); NEUTROPHILS # 2.2 10^3/uL (1.8-7.7); NEUTROPHILS % 38.8 % (36.0-66.0); PLATELET COUNT, AUTOMATED 268 10^3/uL (150-450); RED BLOOD COUNT 3.83 10^6/uL (4.30-6.10); RED CELL DISTRIBUTION WIDTH 14.5 % (11.5-14.5); WHITE BLOOD COUNT 5.5 10^3/uL (4.0-10.0)
[2018-03-24 07:50] LABS: ANION GAP 4 MEQ/L (8-16); BLOOD UREA NITROGEN 20 MG/DL (7-18); CALCIUM LEVEL 9.2 MG/DL (8.8-10.2); CARBON DIOXIDE LEVEL 30 MEQ/L (21-32); CHLORIDE LEVEL 108 MEQ/L (98-107); CHOLESTEROL LEVEL 101 MG/DL (<200); CHOLESTEROL RISK RATIO 3.156 (<5); CREATININE FOR GFR 1.45 MG/DL (0.70-1.30); GLOMERULAR FILTRATION RATE 52.8 (>49); GLUCOSE, FASTING 95 MG/DL (70-100); HDL CHOLESTEROL 32 MG/DL (>40); LDL CHOLESTEROL 60 MG/DL (<100); NON-HDL-C 69 MG/DL; POTASSIUM SERUM 4.1 MEQ/L (3.5-5.1); SODIUM LEVEL 142 MEQ/L (136-145); TRIGLYCERIDES LEVEL 44 MG/DL (<150)
== END ==
LOC: M LAB 06:57
DX: E03.9 Hypothyroidism, unspecified (principal)
CPT/HCPCS: 84443

== ENCOUNTER → 2018-04-05 | Outpatient (REF) | payer MEDICARE, MEDICAID ==
[2018-04-05 22:12] LABS: APPEARANCE, URINE CLEAR (CLEAR); BACTERIA, URINE AUTO NEGATIVE (NEGATIVE); BILIRUBIN, URINE AUTO NEGATIVE (NEGATIVE); BLOOD, URINE BLOOD NEGATIVE (NEGATIVE); COLOR, URINE YELLOW (YELLOW); GLUCOSE, URINE (UA) AUTO NEGATIVE (NEGATIVE); KETONE, URINE AUTO NEGATIVE (NEGATIVE); LEUKOCYTE ESTERASE, URINE AUTO NEGATIVE (NEGATIVE); NITRITE, URINE AUTO POSITIVE (NEGATIVE); PROTEIN, URINE AUTO NEGATIVE (NEGATIVE); RBC, URINE AUTO 2 /HPF (0-3); SPECIFIC GRAVITY URINE AUTO 1.006 (1.002-1.035); SQUAMOUS EPITHELIAL CELL UR AU 0 /HPF (0-6); UROBILINOGEN, URINE AUTO 0.2 mg/dL (0.0-2.0); WBC, URINE AUTO 4 /HPF (0-3)
== END ==
LOC: M LAB REF 10:04
DX: N39.0 Urinary tract infection, site not specified (principal)
CPT/HCPCS: 81001

== ENCOUNTER 2018-09-19 16:59 | Day surgery (SDC) | payer MEDICARE, MEDICAID ==
[~2018-09-19] VITALS: Ht 167.6 cm; Wt 95.5 kg
--- NOTE | 2018-09-19 17:38 | ED PDOC ---
Post-Departure Follow-Up patient not seen by ED provider. Gardenia Cee MD September 19, 2018 17:38
[2018-09-19 17:43] LABS: HEMATOCRIT 36.6 % (42.0-52.0); HEMOGLOBIN 12.3 g/dl (13.5-17.5); MEAN CORPUSCULAR HEMOGLOBIN 32.5 pg (27.0-33.0); MEAN CORPUSCULAR HGB CONC 33.6 g/dl (32.0-36.5); MEAN CORPUSCULAR VOLUME 96.8 fl (80.0-96.0); PLATELET COUNT, AUTOMATED 227 10^3/uL (150-450); RED BLOOD COUNT 3.78 10^6/uL (4.30-6.10)
[2018-09-19 17:58] LABS: INR 0.96; PROTHROMBIN TIME 12.9 SECONDS (12.1-14.4)
[2018-09-19 17:59] LABS: PARTIAL THROMBOPLASTIN TIME 26.9 SECONDS (25.4-37.6)
[2018-09-19] MEDS ORDERED: CEPH500C PO (18:04)
[2018-09-19 18:15] LABS: CALCIUM LEVEL 9.4 MG/DL (8.8-10.2); CREATININE FOR GFR 1.46 MG/DL (0.70-1.30); GLOMERULAR FILTRATION RATE 52.4 (>49); POTASSIUM SERUM 4.1 MEQ/L (3.5-5.1)
[2018-09-19] MEDS ORDERED: cefTRIAXone SOD 1 GM VIAL (J0696) As Ordered ONE (19:15)
[2018-09-19] MEDS ORDERED: PROPOFOL 200 MG/20 ML VIAL As Ordered ONE (19:31)
[2018-09-19] MEDS ORDERED: LIDOCAINE 2% INJ 100 MG/5 ML SDV (FOR ANES.) As Ordered ONE (19:31)
[2018-09-19] MEDS ORDERED: fentaNYL 100 MCG/2 ML INJECTION (J3010) As Ordered ONE (19:32)
[2018-09-19] MEDS ORDERED: MIDAZOLAM INJ 2 MG/2 ML VIAL (J2250) As Ordered ONE (19:32)
[2018-09-19] MEDS ORDERED: LIDOCAINE 2% 5ML JELLY UROJET As Ordered ONE (19:37)
[2018-09-19] MEDS ORDERED: ONDANSETRON 4MG/2ML VIAL (J2405) As Ordered ONE (19:57)
[2018-09-19] MEDS ORDERED: KETOROLAC 60 MG/2 ML VIAL (J1885) As Ordered ONE (19:57)
[2018-09-19] MEDS ORDERED: dexameTHASONE 4 MG/ML 1ML VIAL (J1100) As Ordered ONE (19:57)
[2018-09-19] MEDS ORDERED: ONDANSETRON 4MG/2ML VIAL (J2405) IV PRN (20:45)
[2018-09-19] MEDS ORDERED: fentaNYL 100 MCG/2 ML INJECTION (J3010) IV PRN (20:45)
[2018-09-19] MEDS ORDERED: LR 1,000 ML IV SCH (20:45)
--- NOTE | 2018-09-19 21:02 | ECGEPIP ---
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
[2018-09-19 22:50] VITALS: BP 131/89
--- NOTE | 2018-09-20 14:11 | RO ---
DATE OF PROCEDURE: 09/19/2018 PREOPERATIVE DIAGNOSIS: Urinary retention and retained Cesar catheter. POSTOPERATIVE DIAGNOSIS: Urinary retention and retained Cesar catheter. OPERATIVE PROCEDURE PERFORMED: Cystoscopy. Removal and replacement of Cesar catheter. SURGEON: Dr. Elan Mixon ANESTHESIA: IV sedation. ESTIMATED BLOOD LOSS: Minimal. INDICATIONS: Mr. Mehrdad Cristobal is a 62-year-old gentleman with known mental retardation who was in urinary retention. He came to the urology clinic today for Cesar catheter replacement and the Cesar catheter that was in place could not be removed. Multiple conservative maneuvers were tried unsuccessfully. The patient was then sent to radiology and no visualized balloon was seen in the bladder. The patient was brought to the operating room for further management. PROCEDURE IN DETAIL: The patient was brought in to the operating room and after administration of IV sedation he was placed in the dorsal lithotomy position and prepped and draped in the usual fashion. Cystourethroscopy was first performed using #17-Pakistani cystoscope. The anterior and posterior urethra was noted to be normal. The prostatic urethra was noted to be somewhat ragged and adherent to the catheter. The balloon was noted to be decompressed. With moderate difficulty the bladder was entered. The bladder was noted to have significant "floaties" seen and foul smelling urine. A sample was obtained and sent to microbiology for culture. The end of the Cesar catheter was noted to be completely calcified. It was dislodged from the surrounding tissue and that catheter was ultimately removed. Repeat cystoscopy with a 22-Pakistani cystoscope revealed moderate irritation and some tissue removal in the region of the prostatic urethra and bladder neck. The bladder was otherwise largely unremarkable except for Cesar catheter irritation on the posterior wall and dome. A fresh 16-Pakistani Cesar catheter was placed and the balloon was inflated with 10 mL. This was irrigated without difficulty. It was placed to gravity drainage and the patient was returned to the supine position. Anesthesia was reversed and he was transferred to a bed and taken to the postanesthesia care unit in good condition. Of note the needle and instrument count were correct at the completion of the case.
== END 2018-09-19 22:50 | disposition home or self-care (01) ==
LOC: M ED 16:59 → M SDC 18:47
PROVIDERS: ATTEND Urology
DX: T83.018A Breakdown (mechanical) of other urinary catheter, initial encounter (principal); R33.9 Retention of urine, unspecified; N40.0 Benign prostatic hyperplasia without lower urinary tract symptoms; E78.00 Pure hypercholesterolemia, unspecified; Z88.1 Allergy status to other antibiotic agents; Z88.8 Allergy status to other drugs, medicaments and biological substances; Z79.899 Other long term (current) drug therapy; K21.9 Gastro-esophageal reflux disease without esophagitis; Z79.82 Long term (current) use of aspirin; F79 Unspecified intellectual disabilities; Y82.8 Other medical devices associated with adverse incidents
CPT/HCPCS: 51703; 52000; 76857; 80048; 85027; 85610; 85730; 87088; 87186; 88300; 93005; 99284; G0463; J0696; J1100; J2250; J2405; J3010

== ENCOUNTER → 2018-09-19 | Outpatient (CLI) | payer MEDICARE, MEDICAID ==
[~2018-09-19] MED LIST changes: -/QUET25TA; +ASPI81TA26 PO; +CEPH500C PO; +FENO160T10 PO; +FINA5TAB2 PO; +FISH100049 PO; +FLOM0.4C39 PO; +LACT10SO29 PO; +LEVO750T13 PO; +LEVO88TA24 PO; +MACR100C43 PO; +NIAC500T64 PO; +NIAS500T23 PO; +OMEG100011 PO; +OMEP20CA3 PO; +PERI0.126 MT; +PERI0.126 PO; +PREG1POW XX; +PREG50CA PO; +SERO1TAB2 PO; +SERO1TAB3; +SERO200T PO; +SERO50TA PO; +SIMV10TA2 PO; +SYNT88TA2 PO; +VANC250C3 PO
--- NOTE | 2018-09-19 17:23 | REP ---
LIMITED ULTRASOUND OF THE BLADDER: Real-time sonographic evaluation of the urinary bladder performed prior to a scheduled procedure to attempt to deflate the Cesar catheter balloon. There is moderate distention of the urinary bladder. No Cesar balloon is seen within the bladder lumen. There is subtle echogenicity with shadowing in the region of the prostatic urethra raising the possibility that the Cesar catheter balloon is located in the prostatic portion of the urethra. The ultrasound guided deflation of the Cesar balloon therefore could not be performed. Electronically Signed by Milan Wetzel MD 09/23/2018 10:08 A
== END ==
LOC: M LAB 15:43
PROVIDERS: ATTEND Nurse Practitioner Family
DX: R32 Unspecified urinary incontinence (principal)

== ENCOUNTER 2019-01-01 09:53 | Emergency (ER) | payer MEDICARE, MEDICAID ==
[~2019-01-01] VITALS: Ht 167.6 cm; Wt 100.0 kg
[~2019-01-01 09:53] MED LIST changes: -OMEP20CA3 PO; +OMEP20CA4 PO
[2019-01-01] MEDS ORDERED: SERO200T PO (10:05)
[2019-01-01 12:12] LABS: BASO % 0.3 % (0.0-1.0); EOS # 0.3 10^3/uL (0.0-0.5); EOS % 2.4 % (0.0-3.0); HEMATOCRIT 39.1 % (42.0-52.0); HEMOGLOBIN 12.9 g/dl (13.5-17.5); LYMPH # 0.9 10^3/uL (1.5-5.0); MEAN CORPUSCULAR HEMOGLOBIN 32.3 pg (27.0-33.0); MONO # 0.6 10^3/uL (0.0-0.8); MONO % 4.7 % (0.0-5.0); NEUTROPHILS # 9.9 10^3/uL (1.5-8.5); NEUTROPHILS % 84.3 % (36.0-66.0); PLATELET COUNT, AUTOMATED 235 10^3/uL (150-450); RED BLOOD COUNT 3.99 10^6/uL (4.30-6.10); WHITE BLOOD COUNT 11.8 10^3/uL (4.0-10.0)
[2019-01-01 12:45] LABS: BLOOD UREA NITROGEN 21 MG/DL (7-18); CALCIUM LEVEL 9.4 MG/DL (8.8-10.2); CARBON DIOXIDE LEVEL 28 MEQ/L (21-32); CHLORIDE LEVEL 106 MEQ/L (98-107); CK-MB VALUE MASS < 1.0 NG/ML (<3.6); CPK CREATINE PHOSPHOKINASE 165 U/L (39-308); CREATININE FOR GFR 1.64 MG/DL (0.70-1.30); GLOMERULAR FILTRATION RATE 45.7 (>49); GLUCOSE, FASTING 112 MG/DL (70-100); MB/CK RELATIVE INDEX 0.61 (< OR =4); POTASSIUM SERUM 5.7 MEQ/L (3.5-5.1); SODIUM LEVEL 139 MEQ/L (136-145); TROPONIN I < 0.02 NG/ML (< 0.10)
--- NOTE | 2019-01-01 12:48 | REP ---
Clinical: Pyelonephritis. Technique: Axial noncontrast images from the lung bases to the pubic symphysis with coronal and sagittal re-formations. Comparison: 10/15/2017. Note: Examination is significantly limited due to motion artifact. Findings: Lung bases suggest mild dependent changes. Liver, spleen, pancreas, and bilateral adrenal glands are grossly normal. Cholelithiasis noted. Evidence for prior left nephrectomy. Right kidney includes multiple predominantly subcentimeter fat-containing lesions along with two larger fat-containing lesions measuring up to approximately 3.4 cm and consistent with multiple angiomyolipoma. No perinephric stranding, urinary tract calcifications, or hydroureteronephrosis noted. The enteric system is without obstruction. Mild wall thickening to multiple loops of bowel may reflect enterocolitis and should be correlated clinically. Pelvis demonstrates Cesar catheter in chronic thick-walled bladder without discrete focal lesion. The prostate gland is normal for age. No ascites. No free air. No adenopathy. Abdominal aorta without aneurysm. Musculoskeletal structures demonstrate age-related changes. Impression: 1. Somewhat limited examination due to motion artifact. 2. Cannot exclude mild acute enterocolitis. 3. Multiple angiomyolipomas to the right kidney again identified and similar to prior examination without evidence for acute renal process. Chronic wall thickening to the bladder unchanged from prior examination. 4. Cholelithiasis. 5. Further chronic stable changes as above. Electronically Signed by Eddi Pham MD 01/01/2019 12:39 P
--- NOTE | 2019-01-01 13:20 | REP ---
Clinical: Headache. Comparison: 10/15/2017. Findings: The ventricles, sulci, and cisterns are normal in position and appearance. Wetzel-white differentiation is maintained. No acute intracranial hemorrhage, mass/mass effect, pathology or trauma/injury. Calcified subependymal tubers are unchanged and chronic. No evidence for acute infarction. No extra-axial fluid collection. Calvarium is intact. Paranasal sinuses and mastoid air cells are clear. Impression: Chronic stable change. No evidence for acute intracranial pathology or trauma/injury. Electronically Signed by Eddi Pham MD 01/01/2019 01:12 P
[2019-01-01 15:15] VITALS: BP 114/74
--- NOTE | 2019-01-02 07:01 | ECGEPIP ---
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
== END 2019-01-01 15:49 | disposition home or self-care (01) ==
LOC: EDBD 09:53 → M ED 09:53
DX: I95.9 Hypotension, unspecified (principal); N18.3 Chronic kidney disease, stage 3 (moderate); K21.9 Gastro-esophageal reflux disease without esophagitis; G40.909 Epilepsy, unspecified, not intractable, without status epilepticus; F79 Unspecified intellectual disabilities; N40.0 Benign prostatic hyperplasia without lower urinary tract symptoms; K59.00 Constipation, unspecified; Z88.1 Allergy status to other antibiotic agents; Z88.5 Allergy status to narcotic agent; Z88.6 Allergy status to analgesic agent; Z88.8 Allergy status to other drugs, medicaments and biological substances

== ENCOUNTER → 2019-01-05 | Outpatient (REF) | payer MEDICARE, MEDICAID ==
[2019-01-05 17:45] LABS: BACTERIA, URINE AUTO 2+ (NEGATIVE); RBC, URINE AUTO 8 /HPF (0-3); SQUAMOUS EPITHELIAL CELL UR AU 2 /HPF (0-6); WBC, URINE AUTO 24 /HPF (0-3)
[2019-01-05 17:56] LABS: APPEARANCE, URINE HAZY (CLEAR); BILIRUBIN, URINE AUTO NEGATIVE (NEGATIVE); BLOOD, URINE BLOOD 1+ (NEGATIVE); COLOR, URINE YELLOW (YELLOW); GLUCOSE, URINE (UA) AUTO NEGATIVE (NEGATIVE); KETONE, URINE AUTO NEGATIVE (NEGATIVE); LEUKOCYTE ESTERASE, URINE AUTO 3+ (NEGATIVE); MUCUS, URINE SMALL (NEGATIVE); NITRITE, URINE AUTO NEGATIVE (NEGATIVE); PROTEIN, URINE AUTO NEGATIVE (NEGATIVE); SPECIFIC GRAVITY URINE AUTO 1.003 (1.002-1.035); UROBILINOGEN, URINE AUTO 0.2 mg/dL (0.0-2.0)
== END ==
LOC: M LAB REF 17:17
PROVIDERS: ATTEND Physician Assistant Medical
DX: N39.0 Urinary tract infection, site not specified (principal)

== ENCOUNTER 2019-02-27 21:38 | Emergency (ER) | payer MEDICARE, MEDICAID ==
[~2019-02-27] VITALS: Ht 167.6 cm; Wt 97.7 kg
[2019-02-27] MEDS ORDERED: LIDOCAINE 2% 5ML JELLY UROJET TOP ONE (22:00)
[2019-02-27 23:01] LABS: AMORPHOUS SEDIMENT SMALL (NEGATIVE); APPEARANCE, URINE CLOUDY (CLEAR); BACTERIA, URINE AUTO 2+ (NEGATIVE); BILIRUBIN, URINE AUTO NEGATIVE (NEGATIVE); BLOOD, URINE BLOOD 1+ (NEGATIVE); COLOR, URINE YELLOW (YELLOW); GLUCOSE, URINE (UA) AUTO NEGATIVE (NEGATIVE); KETONE, URINE AUTO NEGATIVE (NEGATIVE); LEUKOCYTE ESTERASE, URINE AUTO 3+ (NEGATIVE); MUCUS, URINE SMALL (NEGATIVE); NITRITE, URINE AUTO NEGATIVE (NEGATIVE); PROTEIN, URINE AUTO NEGATIVE (NEGATIVE); RBC, URINE AUTO 6 /HPF (0-3); SPECIFIC GRAVITY URINE AUTO 1.006 (1.002-1.035); SQUAMOUS EPITHELIAL CELL UR AU 2 /HPF (0-6); WBC, URINE AUTO 24 /HPF (0-3)
[2019-02-27] MEDS ORDERED: FOSFOMYCIN TROMETHAMINE 3 GM POWDER PACKET (MONUROL) PO ONE (23:30)
[2019-02-28 00:21] VITALS: BP 139/82
== END 2019-02-28 00:22 | disposition home or self-care (01) ==
LOC: M ED 21:38
DX: N39.0 Urinary tract infection, site not specified (principal); T83.098A Other mechanical complication of other urinary catheter, initial encounter; X58.XXXA Exposure to other specified factors, initial encounter; Y92.89 Other specified places as the place of occurrence of the external cause; F09 Unspecified mental disorder due to known physiological condition; N40.0 Benign prostatic hyperplasia without lower urinary tract symptoms; Z79.899 Other long term (current) drug therapy; Z79.890 Hormone replacement therapy; Z79.82 Long term (current) use of aspirin; Z88.1 Allergy status to other antibiotic agents; Z88.8 Allergy status to other drugs, medicaments and biological substances

== ENCOUNTER → 2019-03-13 | Outpatient (REF) | payer MEDICARE, MEDICAID ==
[2019-03-13 22:23] LABS: APPEARANCE, URINE HAZY (CLEAR); BACTERIA, URINE AUTO NEGATIVE (NEGATIVE); BILIRUBIN, URINE AUTO NEGATIVE (NEGATIVE); BLOOD, URINE BLOOD 1+ (NEGATIVE); COLOR, URINE YELLOW (YELLOW); GLUCOSE, URINE (UA) AUTO NEGATIVE (NEGATIVE); KETONE, URINE AUTO NEGATIVE (NEGATIVE); LEUKOCYTE ESTERASE, URINE AUTO 3+ (NEGATIVE); NITRITE, URINE AUTO POSITIVE (NEGATIVE); PROTEIN, URINE AUTO NEGATIVE (NEGATIVE); RBC, URINE AUTO 2 /HPF (0-3); SPECIFIC GRAVITY URINE AUTO 1.003 (1.002-1.035); SQUAMOUS EPITHELIAL CELL UR AU 3 /HPF (0-6); UROBILINOGEN, URINE AUTO 0.2 mg/dL (0.0-2.0); WBC, URINE AUTO 7 /HPF (0-3)
== END ==
LOC: M LAB REF 12:21
PROVIDERS: ATTEND Physician Assistant
DX: N39.0 Urinary tract infection, site not specified (principal)

== ENCOUNTER 2019-04-07 07:05 | Day surgery (SDC) | payer MEDICARE, MEDICAID ==
[~2019-04-07] VITALS: Ht 167.6 cm; Wt 99.3 kg
[~2019-04-07 07:05] MED LIST changes: +OMEP-172 PO; -OMEP20CA4 PO; -SIMV10TA2 PO; +SIMV10TA21 PO
[2019-04-07] MEDS ORDERED: PROPOFOL 200 MG/20 ML VIAL As Ordered ONE (07:39)
[2019-04-07] MEDS ORDERED: LIDOCAINE 2% INJ 100 MG/5 ML SDV (FOR ANES.) As Ordered ONE (07:40)
[2019-04-07] MEDS ORDERED: NS 1,000 ML IV ONE (08:00)
[2019-04-07 08:12] VITALS: BP 150/86
== END 2019-04-07 08:45 | disposition home or self-care (01) ==
LOC: M OPP 07:05
PROVIDERS: ATTEND Internal Medicine Gastroenterology
DX: Z12.11 Encounter for screening for malignant neoplasm of colon (principal); Z53.9 Procedure and treatment not carried out, unspecified reason

== ENCOUNTER 2019-06-22 16:45 | Emergency (ER) | payer MEDICARE, MEDICAID ==
[~2019-06-22] VITALS: Ht 167.6 cm; Wt 103.5 kg
[~2019-06-22 16:45] MED LIST changes: +MIRA3350 PO; -OMEP-172 PO; +OMEP1CAP73 PO
[2019-06-22] MEDS ORDERED: NIAS500T23 PO (19:06)
--- NOTE | 2019-06-22 22:23 | REPVR ---
PROCEDURE INFORMATION: Exam: US Pelvis Limited, Male Exam date and time: 06/22/19 (9:44pm) Age: 63 years old Clinical indication: Pelvic pain. Urology request -- assess for Cesar balloon inflation. TECHNIQUE: Imaging protocol: Real-time pelvic ultrasound with image documentation COMPARISON: BLADDER (LIMITED PELVIC) US of 09/19/18 FINDINGS: A Cesar catheter balloon is visualized within the urinary bladder. The balloon does not appear to be fully inflated. No bladder stones nor mass. No pelvic fluid collections are appreciated. IMPRESSION: A Cesar catheter balloon is visualized within the urinary bladder. The balloon does not appear to be fully inflated. Electronically signed by: Savanna Hodge On 06/22/2019 22:22:30 PM
[2019-06-23 01:10] VITALS: BP 138/100
== END 2019-06-23 01:12 | disposition home or self-care (01) ==
LOC: M ED 16:45
DX: T83.091A Other mechanical complication of indwelling urethral catheter, initial encounter (principal); Z87.448 Personal history of other diseases of urinary system; Z79.890 Hormone replacement therapy; Z79.899 Other long term (current) drug therapy; Z79.82 Long term (current) use of aspirin; Z88.8 Allergy status to other drugs, medicaments and biological substances; Z88.1 Allergy status to other antibiotic agents; Z88.5 Allergy status to narcotic agent

== ENCOUNTER 2019-06-26 10:49 | Day surgery (SDC) | payer MEDICARE, MEDICAID ==
[~2019-06-26] VITALS: Ht 167.6 cm; Wt 100.5 kg
[~2019-06-26 10:49] MED LIST changes: +NS 1,000 ML IV ONE
[2019-06-26] MEDS ORDERED: LIDOCAINE 2% INJ 100 MG/5 ML SDV (FOR ANES.) As Ordered ONE (12:21)
[2019-06-26] MEDS ORDERED: propofoL 200 MG/20 ML VIAL As Ordered ONE ×3 (12:21→13:11)
--- NOTE | 2019-06-26 13:28 | ROOR ---
Patient Name: Mehrdad Cristobal Procedure Date: 06/26/2019 12:11 PM Date of : 1955 Age: 63 Room: [facility] Gender: Male Note Status: Finalized Procedure: Colonoscopy Indications: High risk colon cancer surveillance: Personal history of colonic polyps Providers: Augustus MAHARAJ MD Referring MD: KATHRINE OGLESBY MD Requesting Provider: Medicines: Monitored Anesthesia Care Complications: No immediate complications. Procedure: Pre-Anesthesia Assessment: - The heart rate, respiratory rate, oxygen saturations, blood pressure, adequacy of pulmonary ventilation, and response to care were monitored throughout the procedure. The Colonoscope was introduced through the anus with the intention of advancing to the cecum. The scope was advanced to the hepatic flexure before the procedure was aborted. Medications were given. The colonoscopy was technically difficult and complex due to dolichocolon. Successful completion of the procedure was aided by changing the patient to a supine position, changing the patient to a prone position, using manual pressure, withdrawing and reinserting the scope and straightening and shortening the scope to obtain bowel loop reduction. Findings: The perianal and digital rectal examinations were normal. The colon (entire examined portion) appeared normal. Internal hemorrhoids were found during retroflexion. The colon (entire examined portion) was grossly redundant. Impression: - Long redundant colon, unable to pass beyond hepatic flexure. - The entire examined colon to the hepatic flexure is normal. - Internal hemorrhoids. - No specimens collected. Recommendation: - Barium enema to complete exam in past: Pt unable to cooperate with exam in past. - Rec: try perform a virtual colonoscopy at appointment to be scheduled. - My office will call you in the next few days to set you up for this study/exam. Augustus Maharaj MD Augustus MAHARAJ MD 06/26/2019 1:28:15 PM Electronically signed by Augustus MAHARAJ MD Number of Addenda: 0 Note Initiated On: 06/26/2019 12:11 PM Estimated Blood Loss: Estimated blood loss: none.
[2019-06-26 14:05] VITALS: BP 164/95
== END 2019-06-26 14:05 | disposition home or self-care (01) ==
LOC: M OPP 10:49
PROVIDERS: ATTEND Internal Medicine Gastroenterology
DX: Z86.010 Personal history of colon polyps (principal); Z09 Encounter for follow-up examination after completed treatment for conditions other than malignant neoplasm; K64.8 Other hemorrhoids; Q43.8 Other specified congenital malformations of intestine; Z79.82 Long term (current) use of aspirin; Z79.899 Other long term (current) drug therapy; Z88.1 Allergy status to other antibiotic agents; Z88.5 Allergy status to narcotic agent; Z90.5 Acquired absence of kidney; Z92.21 Personal history of antineoplastic chemotherapy; Z92.3 Personal history of irradiation

== ENCOUNTER → 2019-11-24 | Outpatient (REF) | payer MEDICARE, MEDICAID ==
[~2019-11-24] MED LIST changes: -LACT10SO29 PO; +LACT20EL PO; -NS 1,000 ML IV ONE
[2019-12-29 12:52] LABS: FERRITIN 81 NG/ML (26-388); IRON (FE) 127 UG/DL (65-175); PERCENT SATURATION 31.1 % (19.7-50.0); TOTAL IRON BINDING CAPACITY 409 UG/DL (250-450)
== END ==
LOC: M LAB REF 13:55
PROVIDERS: ATTEND Internal Medicine Nephrology
DX: D64.9 Anemia, unspecified (principal)

== ENCOUNTER 2020-04-01 16:52 | Emergency (ER) | payer MEDICARE, MEDICAID ==
[~2020-04-01] VITALS: Ht 167.6 cm; Wt 97.7 kg
[2020-04-01] MEDS ORDERED: LIDOCAINE 2% 5ML JELLY UROJET TOP ONE (19:15)
[2020-04-01 20:01] VITALS: BP 135/100
== END 2020-04-01 20:55 | disposition home or self-care (01) ==
LOC: M ED 16:52
DX: T83.098A Other mechanical complication of other urinary catheter, initial encounter (principal); X58.XXXA Exposure to other specified factors, initial encounter; Y92.89 Other specified places as the place of occurrence of the external cause; I25.10 Atherosclerotic heart disease of native coronary artery without angina pectoris; F79 Unspecified intellectual disabilities; Z79.899 Other long term (current) drug therapy; Z79.82 Long term (current) use of aspirin; Z88.1 Allergy status to other antibiotic agents; Z88.5 Allergy status to narcotic agent; Z88.8 Allergy status to other drugs, medicaments and biological substances

== ENCOUNTER → 2020-06-08 | Outpatient (REF) | payer MEDICARE, MEDICAID | LOC: M SMT 12:41 | PROVIDERS: ATTEND Nurse Practitioner Women's Health | DX: R33.9 Retention of urine, unspecified (principal) ==

== ENCOUNTER → 2020-10-07 | Outpatient (CLI) | payer MEDICARE, MEDICAID ==
--- NOTE | 2020-10-07 18:14 | REP ---
INDICATION: BENIGN LIPOMATOUS NEOPLASM OF KIDNEY. COMPARISON: CT 01/01/2019, ultrasound 06/28/2017. TECHNIQUE: Real-time sonographic evaluation of the right kidney is performed. The patient has had a left nephrectomy. FINDINGS: The right kidney demonstrates diffuse heterogeneous echotexture. Multiple hyperechoic nodules are seen throughout the right kidney consistent with multiple angiomyolipomas. The 3 largest are measured. One is seen in the upper pole 3.5 x 2.6 x 2.1 cm and there are 2 in the lower pole, 2.0 x 1.2 x 1.3 cm and 4.6 x 3.6 x 3.9 cm. There is no hydronephrosis. The right kidney measures 14.7 x 6.1 x 8.2 cm. The urinary bladder is unremarkable. Ureteral jets could not be seen in the urinary bladder with Doppler color evaluation. IMPRESSION: Multiple hyperechoic nodules throughout the right kidney consistent with angiomyolipomas as discussed in detail above. <Electronically signed by Milan Wetzel > 10/07/20 [id number]
== END ==
LOC: M RAD 12:33
PROVIDERS: ATTEND Nurse Practitioner Family
DX: D17.71 Benign lipomatous neoplasm of kidney (principal)

== ENCOUNTER → 2020-11-23 | Outpatient (REF) | payer MEDICARE, MEDICAID | LOC: M LAB REF 17:48 | PROVIDERS: ATTEND Internal Medicine Nephrology | DX: N18.32 Chronic kidney disease, stage 3b (principal) ==

== ENCOUNTER → 2021-02-01 | Outpatient (REF) | payer MEDICARE, MEDICAID | LOC: M LAB REF 17:16 | PROVIDERS: ATTEND Nurse Practitioner Family | DX: N39.0 Urinary tract infection, site not specified (principal) ==

== ENCOUNTER → 2021-03-28 | Outpatient (REF) | payer MEDICARE, MEDICAID ==
[2021-03-28 12:19] LABS: AMORPHOUS SEDIMENT SMALL (NEGATIVE); APPEARANCE, URINE CLOUDY (CLEAR); BACTERIA, URINE AUTO NEGATIVE (NEGATIVE); BILIRUBIN, URINE AUTO NEGATIVE (NEGATIVE); BLOOD, URINE BLOOD NEGATIVE (NEGATIVE); CALCIUM OXALATE CRYSTALS SMALL; COLOR, URINE YELLOW (YELLOW); GLUCOSE, URINE (UA) AUTO NEGATIVE (NEGATIVE); KETONE, URINE AUTO NEGATIVE (NEGATIVE); LEUKOCYTE ESTERASE, URINE AUTO 3+ (NEGATIVE); MUCUS, URINE SMALL (NEGATIVE); NITRITE, URINE AUTO NEGATIVE (NEGATIVE); PROTEIN, URINE AUTO 2+ mg/dL (NEGATIVE); RBC, URINE AUTO 4 /HPF (0-3); SQUAMOUS EPITHELIAL CELL UR AU 1 /HPF (0-6); UROBILINOGEN, URINE AUTO 0.2 mg/dL (0.0-2.0); WBC, URINE AUTO 1 /HPF (0-3)
== END ==
LOC: M SMT 11:43
PROVIDERS: ATTEND Urology
DX: R33.9 Retention of urine, unspecified (principal)

== ENCOUNTER → 2021-05-24 | Outpatient (CLI) | payer MEDICARE, MEDICAID | LOC: M WUC 11:12 | PROVIDERS: ATTEND Physician Assistant | DX: Z12.5 Encounter for screening for malignant neoplasm of prostate (principal) | CPT/HCPCS: 36415; G0103 ==

== ENCOUNTER → 2021-06-06 | Outpatient (REF) | payer MEDICARE, MEDICAID | LOC: M LAB REF 16:51 | PROVIDERS: ATTEND Nurse Practitioner Family | DX: N39.0 Urinary tract infection, site not specified (principal) ==

== ENCOUNTER 2021-06-10 15:41 | Emergency (ER) | payer MEDICARE, MEDICAID ==
[~2021-06-10] VITALS: Ht 167.6 cm; Wt 106.1 kg
[2021-06-10 17:34] VITALS: BP 155/85
== END 2021-06-10 17:37 | disposition home or self-care (01) ==
LOC: M ED 15:41
DX: T83.098A Other mechanical complication of other urinary catheter, initial encounter (principal); N40.0 Benign prostatic hyperplasia without lower urinary tract symptoms; Z88.1 Allergy status to other antibiotic agents; Z88.5 Allergy status to narcotic agent; Z88.8 Allergy status to other drugs, medicaments and biological substances; Z79.899 Other long term (current) drug therapy; Z79.82 Long term (current) use of aspirin; Z79.890 Hormone replacement therapy

== ENCOUNTER 2021-06-15 22:56 | Emergency (ER) | payer MEDICARE, MEDICAID ==
[~2021-06-15] VITALS: Ht 170.2 cm; Wt 103.8 kg
[2021-06-15 23:00] VITALS: BP 132/76
== END 2021-06-15 23:46 | disposition home or self-care (01) ==
LOC: M ED 22:56
DX: T83.098A Other mechanical complication of other urinary catheter, initial encounter (principal); Y92.89 Other specified places as the place of occurrence of the external cause; I10 Essential (primary) hypertension; E78.5 Hyperlipidemia, unspecified; K21.9 Gastro-esophageal reflux disease without esophagitis; G89.29 Other chronic pain; M54.9 Dorsalgia, unspecified; Z79.899 Other long term (current) drug therapy; Z79.82 Long term (current) use of aspirin; Z88.1 Allergy status to other antibiotic agents; Z88.5 Allergy status to narcotic agent; Z88.8 Allergy status to other drugs, medicaments and biological substances

== ENCOUNTER → 2021-06-22 | Outpatient (REF) | payer MEDICARE, MEDICAID ==
[2021-06-22 14:11] LABS: APPEARANCE, URINE CLEAR (CLEAR); BACTERIA, URINE AUTO 3+ (NEGATIVE); BILIRUBIN, URINE AUTO NEGATIVE (NEGATIVE); BLOOD, URINE BLOOD NEGATIVE (NEGATIVE); COLOR, URINE YELLOW (YELLOW); GLUCOSE, URINE (UA) AUTO NEGATIVE (NEGATIVE); KETONE, URINE AUTO NEGATIVE (NEGATIVE); LEUKOCYTE ESTERASE, URINE AUTO 3+ (NEGATIVE); MUCUS, URINE SMALL (NEGATIVE); NITRITE, URINE AUTO NEGATIVE (NEGATIVE); PROTEIN, URINE AUTO NEGATIVE (NEGATIVE); RBC, URINE AUTO 4 /HPF (0-3); SPECIFIC GRAVITY URINE AUTO 1.016 (1.002-1.035); SQUAMOUS EPITHELIAL CELL UR AU 34 /HPF (0-6); TRANSITIONAL EPITHELIAL AUTO 1 /HPF; WBC, URINE AUTO 60 /HPF (0-3)
== END ==
LOC: M LAB REF 13:41
PROVIDERS: ATTEND Nurse Practitioner Family
DX: N39.0 Urinary tract infection, site not specified (principal)

== ENCOUNTER → 2021-07-08 | Outpatient (CLI) | payer MEDICARE, MEDICAID ==
[2021-07-08 12:55] LABS: AMORPHOUS SEDIMENT SMALL (NEGATIVE); BACTERIA, URINE AUTO 1+ (NEGATIVE); BILIRUBIN, URINE AUTO NEGATIVE (NEGATIVE); BLOOD, URINE BLOOD NEGATIVE (NEGATIVE); COLOR, URINE YELLOW (YELLOW); GLUCOSE, URINE (UA) AUTO NEGATIVE (NEGATIVE); KETONE, URINE AUTO NEGATIVE (NEGATIVE); LEUKOCYTE ESTERASE, URINE AUTO 2+ (NEGATIVE); MUCUS, URINE SMALL (NEGATIVE); NITRITE, URINE AUTO NEGATIVE (NEGATIVE); PROTEIN, URINE AUTO NEGATIVE (NEGATIVE); RBC, URINE AUTO 0 /HPF (0-3); SPECIFIC GRAVITY URINE AUTO 1.005 (1.002-1.035); SQUAMOUS EPITHELIAL CELL UR AU 10 /HPF (0-6); UROBILINOGEN, URINE AUTO 0.2 mg/dL (0.0-2.0); WBC, URINE AUTO 6 /HPF (0-3)
[2021-07-10 08:18] LABS: APPEARANCE, URINE CLOUDY (CLEAR)
== END ==
LOC: M LAB 12:08
PROVIDERS: ATTEND Nurse Practitioner Family
DX: N39.0 Urinary tract infection, site not specified (principal)

== ENCOUNTER → 2022-06-12 | Outpatient (CLI) | payer MEDICARE, MEDICAID ==
[~2022-06-12] MED LIST changes: +LEVO1TAB40 PO; -LEVO750T13 PO
== END ==
LOC: M WUC 13:50
PROVIDERS: ATTEND Physician Assistant
DX: Z12.5 Encounter for screening for malignant neoplasm of prostate (principal)
CPT/HCPCS: 36415; G0103

== ENCOUNTER → 2022-07-17 | Outpatient (REF) | payer MEDICARE, MEDICAID ==
[2022-07-17 18:52] LABS: APPEARANCE, URINE CLOUDY (CLEAR); BACTERIA, URINE AUTO NEGATIVE (NEGATIVE); BILIRUBIN, URINE AUTO NEGATIVE (NEGATIVE); BLOOD, URINE BLOOD 1+ (NEGATIVE); COLOR, URINE AMBER (YELLOW); GLUCOSE, URINE (UA) AUTO NEGATIVE (NEGATIVE); KETONE, URINE AUTO NEGATIVE (NEGATIVE); LEUKOCYTE ESTERASE, URINE AUTO TRACE (NEGATIVE); MUCUS, URINE SMALL (NEGATIVE); NITRITE, URINE AUTO NEGATIVE (NEGATIVE); PROTEIN, URINE AUTO 2+ mg/dL (NEGATIVE); RBC, URINE AUTO 9 /HPF (0-3); SPECIFIC GRAVITY URINE AUTO 1.011 (1.002-1.035); SQUAMOUS EPITHELIAL CELL UR AU 9 /HPF (0-6); UROBILINOGEN, URINE AUTO 0.2 mg/dL (0.0-2.0); WBC, URINE AUTO 10 /HPF (0-3)
== END ==
LOC: M SMT 17:10
PROVIDERS: ATTEND Physician Assistant
DX: R33.9 Retention of urine, unspecified (principal)

== ENCOUNTER → 2022-08-25 | Outpatient (REF) | payer MEDICARE, MEDICAID ==
[2022-08-25 17:58] LABS: APPEARANCE, URINE TURBID (CLEAR); BACTERIA, URINE AUTO NEGATIVE (NEGATIVE); BILIRUBIN, URINE AUTO NEGATIVE (NEGATIVE); BLOOD, URINE BLOOD NEGATIVE (NEGATIVE); COLOR, URINE YELLOW (YELLOW); GLUCOSE, URINE (UA) AUTO NEGATIVE (NEGATIVE); KETONE, URINE AUTO NEGATIVE (NEGATIVE); LEUKOCYTE ESTERASE, URINE AUTO 2+ (NEGATIVE); NITRITE, URINE AUTO NEGATIVE (NEGATIVE); PROTEIN, URINE AUTO 3+ mg/dL (NEGATIVE); RBC, URINE AUTO 0 /HPF (0-3); SPECIFIC GRAVITY URINE AUTO 1.012 (1.002-1.035); SQUAMOUS EPITHELIAL CELL UR AU 0 /HPF (0-6); UROBILINOGEN, URINE AUTO 0.2 mg/dL (0.0-2.0); WBC, URINE AUTO 0 /HPF (0-3)
== END ==
LOC: M LAB REF 17:22
PROVIDERS: ATTEND Physician Assistant Medical
DX: N39.0 Urinary tract infection, site not specified (principal)

== ENCOUNTER → 2022-10-01 | Outpatient (CLI) | payer MEDICARE, MEDICAID ==
[2022-10-01 13:43] LABS: HEMATOCRIT 35.8 % (42.0-52.0); HEMOGLOBIN 12.1 g/dl (13.5-17.5); MEAN CORPUSCULAR HGB CONC 33.8 g/dl (32.0-36.5); MEAN CORPUSCULAR VOLUME 100.6 fl (80.0-96.0); PLATELET COUNT, AUTOMATED 323 10^3/uL (150-450); RED BLOOD COUNT 3.56 10^6/uL (4.30-6.10); WHITE BLOOD COUNT 6.1 10^3/uL (4.0-10.0)
[2022-10-01 14:13] LABS: ALBUMIN 3.9 G/DL (3.2-5.2); BILIRUBIN,TOTAL 0.5 MG/DL (0.3-1.2); CALCIUM LEVEL 9.1 MG/DL (8.3-10.6); CHOLESTEROL RISK RATIO 3.01 (<5); CREATININE FOR GFR 1.51 MG/DL (0.70-1.30); GLOMERULAR FILTRATION RATE 49.8 (>49); HDL CHOLESTEROL 34.8 MG/DL (>40); LDL CHOLESTEROL 58.4 MG/DL (<100); NON-HDL-C 70.2 MG/DL; POTASSIUM SERUM 4.3 MMOL/L (3.5-5.1); TOTAL PROTEIN 6.9 G/DL (5.7-8.2)
[2022-10-01 14:14] LABS: THYROID STIMULATING HORMONE 5.454 uIU/ML (0.55-4.78)
== END ==
LOC: M WUC 08:43
PROVIDERS: ATTEND Internal Medicine
DX: E78.5 Hyperlipidemia, unspecified (principal); E03.9 Hypothyroidism, unspecified

== ENCOUNTER 2022-10-05 16:02 | Emergency (ER) | payer MEDICARE, MEDICAID ==
[~2022-10-05] VITALS: Ht 167.6 cm; Wt 107.4 kg
[2022-10-05 16:05] VITALS: BP 141/86; TEMP 97.5; O2SAT 97
[2022-10-05] MEDS ORDERED: LIDOCAINE 2% 5ML JELLY UROJET TOP ONE (19:50)
== END 2022-10-05 21:51 | disposition home or self-care (01) ==
LOC: M ED 16:02
DX: T83.098A Other mechanical complication of other urinary catheter, initial encounter (principal); N40.1 Benign prostatic hyperplasia with lower urinary tract symptoms; Z88.6 Allergy status to analgesic agent; Z88.5 Allergy status to narcotic agent; Z88.8 Allergy status to other drugs, medicaments and biological substances; Z79.899 Other long term (current) drug therapy; Z79.82 Long term (current) use of aspirin; F72 Severe intellectual disabilities

== ENCOUNTER → 2022-10-10 | Outpatient (CLI) | payer MEDICARE, MEDICAID ==
[2022-10-10 09:14] LABS: HEMOGLOBIN A1c 5.2 % (4.0-6.0)
[2022-10-10 09:22] LABS: BASO # 0.1 10^3/uL (0.0-0.2); EOS # 0.6 10^3/uL (0.0-0.5); EOS % 11.4 % (0.0-3.0); HEMOGLOBIN 11.8 g/dl (13.5-17.5); LYMPH # 1.9 10^3/uL (1.5-5.0); LYMPH % 37.6 % (24.0-44.0); MEAN CORPUSCULAR HEMOGLOBIN 31.5 pg (27.0-33.0); MEAN CORPUSCULAR HGB CONC 31.9 g/dl (32.0-36.5); MEAN CORPUSCULAR VOLUME 98.7 fl (80.0-96.0); MONO # 0.4 10^3/uL (0.0-0.8); MONO % 8.2 % (2.0-8.0); NEUTROPHILS # 2.1 10^3/uL (1.5-8.5); NEUTROPHILS % 41.4 % (36.0-66.0); PLATELET COUNT, AUTOMATED 265 10^3/uL (150-450); RED BLOOD COUNT 3.75 10^6/uL (4.30-6.10)
[2022-10-10 09:24] LABS: ALBUMIN 3.6 G/DL (3.2-5.2); CALCIUM LEVEL 9.4 MG/DL (8.3-10.6); CREATININE FOR GFR 1.57 MG/DL (0.70-1.30); GLOMERULAR FILTRATION RATE 47.6 (>49); MAGNESIUM LEVEL 1.7 MG/DL (1.8-2.4); PHOSPHORUS LEVEL 3.2 MG/DL (2.4-5.1); POTASSIUM SERUM 4.2 MMOL/L (3.5-5.1)
[2022-10-10 10:37] LABS: AMORPHOUS SEDIMENT SMALL (NEGATIVE); APPEARANCE, URINE CLOUDY (CLEAR); BACTERIA, URINE AUTO 1+ (NEGATIVE); BILIRUBIN, URINE AUTO NEGATIVE (NEGATIVE); BLOOD, URINE BLOOD NEGATIVE (NEGATIVE); COLOR, URINE YELLOW (YELLOW); GLUCOSE, URINE (UA) AUTO NEGATIVE (NEGATIVE); KETONE, URINE AUTO NEGATIVE (NEGATIVE); LEUKOCYTE ESTERASE, URINE AUTO 3+ (NEGATIVE); MUCUS, URINE SMALL (NEGATIVE); NITRITE, URINE AUTO NEGATIVE (NEGATIVE); PROTEIN, URINE AUTO NEGATIVE (NEGATIVE); RBC, URINE AUTO 1 /HPF (0-3); SPECIFIC GRAVITY URINE AUTO 1.008 (1.002-1.035); SQUAMOUS EPITHELIAL CELL UR AU 38 /HPF (0-6); UROBILINOGEN, URINE AUTO 0.2 mg/dL (0.0-2.0); WBC, URINE AUTO 9 /HPF (0-3)
== END ==
LOC: M LAB 08:16
PROVIDERS: ATTEND Nurse Practitioner Family
DX: N18.31 Chronic kidney disease, stage 3a (principal); E11.22 Type 2 diabetes mellitus with diabetic chronic kidney disease

== ENCOUNTER → 2022-10-12 | Outpatient (CLI) | payer MEDICARE, MEDICAID | LOC: M PLAIMG 11:09 | PROVIDERS: ATTEND Nurse Practitioner Family | DX: R35.0 Frequency of micturition (principal); N18.31 Chronic kidney disease, stage 3a; R33.9 Retention of urine, unspecified; N32.89 Other specified disorders of bladder; K82.8 Other specified diseases of gallbladder ==

== ENCOUNTER → 2022-10-26 | Outpatient (REF) | payer MEDICARE, MEDICAID | LOC: M LAB REF 17:00 | PROVIDERS: ATTEND Nurse Practitioner Family | DX: N39.0 Urinary tract infection, site not specified (principal) ==

== ENCOUNTER → 2023-04-18 | Outpatient (REF) | payer MEDICARE, MEDICAID ==
[2023-04-18 18:24] LABS: APPEARANCE, URINE CLOUDY (CLEAR); BACTERIA, URINE AUTO 3+ (NEGATIVE); BILIRUBIN, URINE AUTO NEGATIVE (NEGATIVE); BLOOD, URINE BLOOD 1+ (NEGATIVE); COLOR, URINE YELLOW (YELLOW); GLUCOSE, URINE (UA) AUTO NEGATIVE (NEGATIVE); KETONE, URINE AUTO NEGATIVE (NEGATIVE); LEUKOCYTE ESTERASE, URINE AUTO 3+ (NEGATIVE); MUCUS, URINE SMALL (NEGATIVE); NITRITE, URINE AUTO NEGATIVE (NEGATIVE); PROTEIN, URINE AUTO NEGATIVE (NEGATIVE); RBC, URINE AUTO 3 /HPF (0-3); SPECIFIC GRAVITY URINE AUTO 1.005 (1.002-1.035); SQUAMOUS EPITHELIAL CELL UR AU 7 /HPF (0-6); UROBILINOGEN, URINE AUTO 0.2 mg/dL (0.0-2.0); WBC, URINE AUTO 31 /HPF (0-3)
== END ==
LOC: M SFHCPLAZ 16:20
PROVIDERS: ATTEND Internal Medicine Infectious Disease
DX: R33.9 Retention of urine, unspecified (principal); Z86.19 Personal history of other infectious and parasitic diseases

== ENCOUNTER → 2023-04-19 | Outpatient (REF) | payer MEDICARE, MEDICAID ==
[2023-04-19 17:44] LABS: ALBUMIN 3.9 G/DL (3.2-5.2); BILIRUBIN,TOTAL 0.3 MG/DL (0.3-1.2); CHOLESTEROL RISK RATIO 3.8 (<5); CREATININE FOR GFR 1.41 MG/DL (0.70-1.30); GLOMERULAR FILTRATION RATE 53.7 (>49); POTASSIUM SERUM 4.6 MMOL/L (3.5-5.1)
[2023-04-19 17:45] LABS: THYROID STIMULATING HORMONE 2.115 uIU/ML (0.55-4.78)
== END ==
LOC: M LABWUC 16:26
PROVIDERS: ATTEND Internal Medicine
DX: E03.9 Hypothyroidism, unspecified (principal); E78.5 Hyperlipidemia, unspecified

== ENCOUNTER → 2023-05-17 | Outpatient (REF) | payer MEDICARE, MEDICAID ==
[2023-05-17 13:56] LABS: APPEARANCE, URINE CLOUDY (CLEAR); BACTERIA, URINE AUTO 1+ (NEGATIVE); BILIRUBIN, URINE AUTO NEGATIVE (NEGATIVE); BLOOD, URINE BLOOD NEGATIVE (NEGATIVE); COLOR, URINE AMBER (YELLOW); GLUCOSE, URINE (UA) AUTO NEGATIVE (NEGATIVE); KETONE, URINE AUTO NEGATIVE (NEGATIVE); LEUKOCYTE ESTERASE, URINE AUTO 3+ (NEGATIVE); MUCUS, URINE SMALL (NEGATIVE); NITRITE, URINE AUTO NEGATIVE (NEGATIVE); PROTEIN, URINE AUTO 1+ mg/dL (NEGATIVE); RBC, URINE AUTO 3 /HPF (0-3); SPECIFIC GRAVITY URINE AUTO 1.013 (1.002-1.035); SQUAMOUS EPITHELIAL CELL UR AU 26 /HPF (0-6); UROBILINOGEN, URINE AUTO 0.2 mg/dL (0.0-2.0); WBC, URINE AUTO 92 /HPF (0-3)
== END ==
LOC: M SFHCPLAZ 12:29
PROVIDERS: ATTEND Internal Medicine Infectious Disease
DX: R31.0 Gross hematuria (principal)

== ENCOUNTER → 2023-05-21 | Outpatient (CLI) | payer MEDICARE, MEDICAID | LOC: M LAB 17:08 | PROVIDERS: ATTEND Physician Assistant | DX: Z12.5 Encounter for screening for malignant neoplasm of prostate (principal) | CPT/HCPCS: 36415; G0103 ==

== ENCOUNTER → 2023-08-22 | Outpatient (CLI) | payer MEDICARE, MEDICAID ==
[2023-08-22 08:21] LABS: BASO # 0.1 10^3/uL (0.0-0.2); EOS # 0.7 10^3/uL (0.0-0.5); EOS % 11.7 % (0.0-3.0); HEMATOCRIT 39.1 % (42.0-52.0); HEMOGLOBIN 12.8 g/dl (13.5-17.5); LYMPH # 1.9 10^3/uL (1.5-5.0); MEAN CORPUSCULAR HEMOGLOBIN 31.2 pg (27.0-33.0); MEAN CORPUSCULAR HGB CONC 32.7 g/dl (32.0-36.5); MEAN CORPUSCULAR VOLUME 95.4 fl (80.0-96.0); MONO # 0.8 10^3/uL (0.0-0.8); MONO % 12.7 % (2.0-8.0); NEUTROPHILS # 2.5 10^3/uL (1.5-8.5); NEUTROPHILS % 42.3 % (36.0-66.0); PLATELET COUNT, AUTOMATED 260 10^3/uL (150-450); WHITE BLOOD COUNT 5.9 10^3/uL (4.0-10.0)
[2023-08-22 08:53] LABS: ALBUMIN 3.8 G/DL (3.2-5.2); BILIRUBIN,TOTAL 0.4 MG/DL (0.3-1.2); CALCIUM LEVEL 10.2 MG/DL (8.3-10.6); CREATININE FOR GFR 1.62 MG/DL (0.70-1.30); GLOMERULAR FILTRATION RATE 45.8 (>49); POTASSIUM SERUM 4.5 MMOL/L (3.5-5.1); THYROID STIMULATING HORMONE 4.596 uIU/ML (0.55-4.78); TOTAL PROTEIN 6.9 G/DL (5.7-8.2)
[2023-08-22 09:06] LABS: CORTISOL AM 14.3 UG/DL (4.3-22.4)
== END ==
LOC: M LAB 07:39
PROVIDERS: ATTEND Internal Medicine
DX: R63.5 Abnormal weight gain (principal)

== ENCOUNTER → 2023-10-12 | Outpatient (CLI) | payer MEDICARE, MEDICAID ==
[2023-10-12 13:50] LABS: BILIRUBIN,TOTAL 0.5 MG/DL (0.3-1.2); CALCIUM LEVEL 9.9 MG/DL (8.3-10.6); CREATININE FOR GFR 1.31 MG/DL (0.70-1.30); GLOMERULAR FILTRATION RATE 58.5 (>49); POTASSIUM SERUM 4.2 MMOL/L (3.5-5.1); TOTAL PROTEIN 6.9 G/DL (5.7-8.2)
[2023-10-12 13:54] LABS: CORTISOL PM 7.5 UG/DL (3.1-16.7); THYROID STIMULATING HORMONE 2.53 uIU/ML (0.55-4.78)
== END ==
LOC: M LAB 13:02
PROVIDERS: ATTEND Internal Medicine
DX: R63.5 Abnormal weight gain (principal)

== ENCOUNTER → 2023-11-04 | Outpatient (REF) | payer MEDICARE, MEDICAID | LOC: M LAB REF 17:18 | PROVIDERS: ATTEND Nurse Practitioner Family | DX: R63.5 Abnormal weight gain (principal) ==

== ENCOUNTER → 2023-11-08 | Outpatient (CLI) | payer MEDICARE, MEDICAID | LOC: M PLAIMG 12:35 | PROVIDERS: ATTEND Nurse Practitioner Family | DX: K80.20 Calculus of gallbladder without cholecystitis without obstruction (principal); Q85.1 Tuberous sclerosis; R63.5 Abnormal weight gain; R33.9 Retention of urine, unspecified ==

== ENCOUNTER → 2023-11-21 | Outpatient (CLI) | payer MEDICARE, MEDICAID | LOC: M RAD 07:21 | PROVIDERS: ATTEND Internal Medicine | DX: N28.89 Other specified disorders of kidney and ureter (principal) ==

== ENCOUNTER → 2024-05-11 | Outpatient (CLI) | payer MEDICARE, MEDICAID ==
[~2024-05-11] MED LIST changes: +VANC250C12 PO; -VANC250C3 PO
[2024-05-11 17:16] LABS: BILIRUBIN,TOTAL 0.3 MG/DL (0.3-1.2); CALCIUM LEVEL 9.4 MG/DL (8.3-10.6); CHOLESTEROL RISK RATIO 3.42 (<5); CREATININE FOR GFR 1.32 MG/DL (0.70-1.30); GLOMERULAR FILTRATION RATE 57.8 (>49); HDL CHOLESTEROL 34.5 MG/DL (>40); LDL CHOLESTEROL 67.5 MG/DL (<100); NON-HDL-C 83.5 MG/DL; POTASSIUM SERUM 4.5 MMOL/L (3.5-5.1); TOTAL PROTEIN 7.4 G/DL (5.7-8.2)
[2024-05-11 17:21] LABS: THYROID STIMULATING HORMONE 2.459 uIU/ML (0.55-4.78)
== END ==
LOC: M LAB 16:05
PROVIDERS: ATTEND Internal Medicine
DX: E78.5 Hyperlipidemia, unspecified (principal); E03.9 Hypothyroidism, unspecified

== ENCOUNTER → 2024-06-19 | Outpatient (REF) | payer MEDICARE, MEDICAID | LOC: M LAB REF 09:23 | PROVIDERS: ATTEND Emergency Medicine | DX: R50.9 Fever, unspecified (principal); Z60.8 Other problems related to social environment; R11.10 Vomiting, unspecified; N39.0 Urinary tract infection, site not specified ==